=== PATIENT | female | born 2000 | race Caucasian/White ===

== ENCOUNTER 2025-03-07 16:33 | Emergency (ER) | payer OTHER, SELFPAY ==
[2025-03-07 16:39] VITALS: BP 122/76; PULSE 75; RESP 18; TEMP 37; O2SAT 98; BMI 32.0
--- NOTE | 2025-03-07 17:00 | ED.GENADULT ---
HPI - General Adult General Chief complaint: Ear Problems Stated complaint: right ear pain Time Seen by Provider: 03/07/25 16:54 Source: patient Mode of arrival: ambulatory Limitations: no limitations History of Present Illness ED Provider: José Mullins HPI narrative: 25-year-old female with history of recurrent ear infections and tubes in the past presents to the ED for bleeding from the right ear this morning when she woke up. And then having ear pain. Patient denies any recent head trauma, fever, chills, Q-tip use, riding roller [employer] or recent airplane. Related Data Previous Rx's ?Medication ?Instructions ?Recorded amoxicillin 875 mg-potassium 1 tab PO Q12H 10 days #20 tabs 03/07/25 clavulanate 125 mg tablet naproxen 500 mg tablet 500 mg PO BID PRN pain #14 tabs 03/07/25 Allergies Allergy/AdvReac Type Severity Reaction Status Date / Time No Known Allergies Allergy Verified 03/07/25 16:42 Review of Systems Review of Systems: Right ear pain bleeding Yes all other systems are reviewed and are negative [facility] Social History Social History Advance Directives: No Advance Directives Information Provided: No Physical Exam ED Vital Signs: Vital Signs - 24 hr 03/07/25 16:39 03/07/25 17:23 Temperature 98.6 F 98.6 F Pulse Rate 75 75 Respiratory Rate 18 18 Blood Pressure 122/76 122/76 Pulse Oximetry 98 98 Oxygen Delivery Method Room Air Room Air BMI result Body Mass Index 32.0 Const General: cooperative, healthy appearing, comfortable, no acute distress, well developed, alert, awake and Physically active Orientation/consciousness: patient oriented x3 HENMT Head: Yes normal to inspection, Yes No palpable skull fracture present, Yes normocephalic and Yes atraumatic Ears: hearing grossly normal bilaterally, external ears normal, TM normal on the left, EAC's normal, mastoids normal, no periauricular adenopathy and TM abnormal (Right) bulging and erythematous Eyes General: appearance normal, both eyes and all related structures Neck Neck: Yes normal visual inspection, Yes full ROM, Yes no lymphadenopathy, Yes no meningeal signs, Yes trachea midline, Yes supple, No anterior neck swelling and No tender Chest Chest palpation & inspection: normal inspection of the chest and normal palpation of entire chest wall Resp Effort & Inspection: normal respiratory effort and able to speak in complete sentences Auscultation: clear to auscultation bilaterally Cardio Jugular venous distension: no JVD Heart sounds: S1 normal heart sound present and S2 normal heart sound present GI Inspection: Yes normal to inspection Palpation (GI): Soft to palpation, not firm, nontender, no guarding and not rigid General: Yes no CVA tenderness Back/Spine/Pelvis Back: no CVA tenderness and No back tenderness Skin General skin exam: no rashes or lesions noted, elasticity normal and turgor normal Neuro General: patient oriented x3, gait normal, tone normal, moves all extremities, Normal light touch and pain sensation, no meningeal signs, no focal motor deficits, CN's II-XI intact bilaterally and normal sensation to monofilament Extrem General: Yes normal to inspection, Yes full ROM and Yes capillary refill normal Psych Appearance: grossly normal, well kempt and not disheveled Medical Decision Making Medical Decision Making MDM Narrative: 25-year-old female presents to ED for right ear pain and blood in the pillow. Patient denies any recent trauma. Patient states history of recurrent ear infections as a child had tubes placed in tube removed. Patient denies any recent swimming or recent airplane ride. Negative signs for raccoon signs. Negative for signs of mastoiditis. Patient will be discharged with antibiotics and explained worrisome signs. Patient informed to follow-up with ENT specialist. Positive for right tympanic membrane erythema. Patient explained worrisome signs and informed to return to the ED immediately. Not suspecting osteomyelitis, brain bleed, skull fracture, cervical spine fracture or any other life-threatening etiology. Differential Diagnosis Differential Diagnoses: The differential diagnosis associated with the presentation includes (Otitis media otitis externa, barotrauma.) Admission/Observation Consideration of admission/observation: Escalation of care including admission/observation considered Independent Historian Clinical information obtained from an independent historian. History obtained from or confirmed by: Other (patient) Prescription Management I considered prescription management with: Pain Medication and Antibiotic Discharge Plan Discharge Clinical Impression: Otitis media Patient Disposition: Home, Self-Care Instructions: Ear Infection (ED) Additional Instructions: Ear exam shows an infection. Negative for any bleeding. Infection can cause to bleeding in the ear. Return to the ED immediately for worsening ear pain, profuse bleeding, headache, dizziness, swelling, redness, or any other concerning symptoms. Prescriptions: New amoxicillin-pot clavulanate 875-125 mg tablet 1 tab PO Q12H 10 Days Qty: 20 0RF naproxen 500 mg tablet 500 mg PO BID PRN (Reason: pain) Qty: 14 0RF Referrals: [facility] [Outside, Ear, Nose, Throat] - 2 days Referral Note: Bleeding from the ear. Ear infection Clinical Impression: Otitis media Stand Alone Forms: Work/School Release Interventions: ED Discharge Assessment Last Done: 03/07/25 17:23 Discharge Date/Time: 03/07/25 17:23 Print Language: Uzbek
--- OUTSIDE RECORDS SUMMARY | 2025-03-07 17:09 | XMS_ITS | Data Portability ---
Author Organization [place] - [facility], [facility] Address [id number] [place] [address] Care Team Providers Care Business Services Sales Representative Name Role Phone YADIRANDALL JIMENEZ Primary Care Provider [phone] Assessment No assessment recorded. Plan of Treatment Reminders Order Date Submit Date Provider Last Modified By Organization Details Last Modified Time Details Appointments ANNUAL AESTHETICIAN 15 2025 02:00P M Boris rubin MD Not available Not available Not available Lab antibody screen, serum or plasma 2022 023 [facility], [address] [place] [address], [id number] 05/31/2023 09:35:51 glucose tolerance test, gestation al, 1-hour 2022 023 [facility], [address] [place] [address], [id number] 05/31/2023 09:35:51 CBC w/ auto diff 2022 023 [facility], [address] [place] [address], [address] 05/31/2023 09:35:52 RPR (rapid plasma reagin), titer, serum 2022 023 [facility], [address] [place] [address], [id number] 05/31/2023 09:35:51 maternal screen, integrate d, first and second trimester , serum 2022 023 [facility], [address] [place] [address], [facility] 03/13/2023 22:29:54 spinal muscular atrophy (sma) 1 + 2 carrier screen 2022 023 [facility], [address] [place], [address] 01/21/2023 21:15:09 CFTR gene sequencin g, blood or tissue 2022 023 [facility], [address], [place], 01/21/2023 21:15:07 hemoglobi n (Hb) electroph oresis, blood 2022 023 [facility], [address] [place], [address] 01/21/2023 21:15:06 Referral None recorded. Procedures None recorded. Surgeries None recorded. Imaging None recorded. Medication Orders None recorded. Patient TargetsNo targets recorded. Patient Instructions Encounter Date Encounter Id Patient Instructions Last Modified By Organization Details Last Modified Time 09/06/2024 [id number] tips to help you stay healthy [email or web address] Not available 09/06/2024 14:26:33 Reason for Referral None Reported. Results Created Date Observation Date Name Description Value Unit Range Abnormal Flag Note LastModifiedBy Organization Detail LastModifiedTime 12/22/19 23 12/22/2022 HIV 1/2 ANTIG EN/AN TIBOD Y,FOU RTH GENER ATION W/RFL HIV Ag/Ab, 4TH gen NON-RE ACTIVE non-re active normal HIV-1 antig en and HIV-1 /HIV- 2 antib odies were not detec dot. There is no labor atory evide nce of HIV infec tion. PLEAS E NOTE: This infor matio n has been discl osed to you from recor ds whose confi denti ality may be prote cted by state law. If your state requi res such prote ction , then the state law prohi bits you from govind french any furth er discl osure of the infor matio n witho ut the speci fic writt en conse nt of the perso n to whom it perta ins, or as other pham permi tted by law. A gener al autho rizat ion for the relea se of medic al or other infor emery ward is NOT suffi cient for this purpo se. For addit ional infor emery n pleas e refer to http: //[facility] eros lawson gnost ics.c om/fa q/FAQ 106 (This link is being provi ded for infor emery nal/ educa augusta l purpo ses only. ) The perfo rmanc e of this assay has not been clini qaung valid ated in patie nts less than 2 years old. Not Available [facility] [place] [facility] [address], [place], [address], 12/22/2022 20:32:33 12/22/19 23 12/22/2022 URINA LYSIS , COMPL ETE color YELLOW yellow normal Not Available [facility] [address], [place], [address], 12/22/2022 20:32:34 12/22/19 23 12/22/2022 URINA LYSIS , COMPL ETE appearance CLEAR clear normal Not Available [facility] [place] [facility] [address], [place], [address], 12/22/2022 20:32:34 12/22/19 23 12/22/2022 URINA LYSIS , COMPL ETE specific gravity 1.016 1.001- 1.035 normal Not Available [facility] [address], [place], [address], 12/22/2022 20:32:34 12/22/19 23 12/22/2022 URINA LYSIS , COMPL ETE pH 7.0 5.0-8. 0 normal Not Available [facility] [address], [place], [address], 12/22/2022 20:32:34 12/22/19 23 12/22/2022 URINA LYSIS , COMPL ETE glucose NEGATI VE negati ve normal Not Available [facility] [place] [facility] [address], [place], [address], 12/22/2022 20:32:34 12/22/19 23 12/22/2022 URINA LYSIS , COMPL ETE bilirubin NEGATI VE negati ve normal Not Available [facility] [place] [facility] [address], [place], [address], 12/22/2022 20:32:34 12/22/19 23 12/22/2022 URINA LYSIS , COMPL ETE ketones NEGATI VE negati ve normal Not Available [facility] [place] [facility] [address], [place], [address], 12/22/2022 20:32:34 12/22/19 23 12/22/2022 URINA LYSIS , COMPL ETE occult blood NEGATI VE negati ve normal Not Available [facility] [place] [facility] [address], [place], [address], 12/22/2022 20:32:34 12/22/19 23 12/22/2022 URINA LYSIS , COMPL ETE protein NEGATI VE negati ve normal Not Available [facility] [place] [facility] [address], [place], [address], 12/22/2022 20:32:34 12/22/19 23 12/22/2022 URINA LYSIS , COMPL ETE nitrite NEGATI VE negati ve normal Not Available [facility] [place] [facility] [address], [place], [address], 12/22/2022 20:32:34 12/22/19 23 12/22/2022 URINA LYSIS , COMPL ETE leukocyte esterase NEGATI VE negati ve normal Not Available [facility] [place] [facility] [address], [place], [address], 12/22/2022 20:32:34 12/22/19 23 12/22/2022 URINA LYSIS , COMPL ETE WBC NONE SEEN /hpf < or = 5 normal Not Available [facility] [place] [facility] [address], [place], [address], 12/22/2022 20:32:34 12/22/19 23 12/22/2022 URINA LYSIS , COMPL ETE RBC NONE SEEN /hpf < or = 2 normal Not Available [facility] [place] [facility] [address], [place], [address], 12/22/2022 20:32:34 12/22/19 23 12/22/2022 URINA LYSIS , COMPL ETE squamous epithelial cells NONE SEEN /hpf < or = 5 normal Not Available [facility] [place] [facility] [address], [place], [address], 12/22/2022 20:32:34 12/22/19 23 12/22/2022 URINA LYSIS , COMPL ETE bacteria NONE SEEN /hpf none seen normal Not Available [facility] [place] [facility] [address], [place], [address], 12/22/2022 20:32:34 12/22/19 23 12/22/2022 URINA LYSIS , COMPL ETE hyaline cast NONE SEEN /lpf none seen normal Not Available [facility] [place] [facility] [address], [place], [address], 12/22/2022 20:32:34 12/22/19 23 12/22/2022 URINA LYSIS , COMPL ETE note This urine was santy zed for the prese nce of WBC, RBC, bacte le, casts , and other forme d eleme nts. Only those eleme nts seen were repor dot. Not Available [facility] [place] [facility] [address], [place], [address], 12/22/2022 20:32:34 12/22/19 23 12/22/2022 CBC (INCL UDES DIFF/ PLT) white blood cell count 8.1 thous and/u L 3.8-10 .8 normal Not Available [facility] [place] [facility] [address], [place], [address], 12/22/2022 20:32:35 12/22/19 23 12/22/2022 CBC (INCL UDES DIFF/ PLT) red blood cell count 4.02 kalin on/uL 3.80-5 .10 normal Not Available [facility] [place] [facility] [address], [place], [address], 12/22/2022 20:32:35 12/22/19 23 12/22/2022 CBC (INCL UDES DIFF/ PLT) hemoglobin 12.5 g/dL 11.7-1 5.5 normal Not Available [facility] [place] [facility] [address], [place], [address], 12/22/2022 20:32:35 12/22/19 23 12/22/2022 CBC (INCL UDES DIFF/ PLT) hematocrit 36.3 % 35.0-4 5.0 normal Not Available [facility] [place] [facility] [address], [place], [address], 12/22/2022 20:32:35 12/22/19 23 12/22/2022 CBC (INCL UDES DIFF/ PLT) MCV 90.3 fL 80.0-1 00.0 normal Not Available [facility] [address], [place], [address], 12/22/2022 20:32:35 12/22/19 23 12/22/2022 CBC (INCL UDES DIFF/ PLT) MCH 31.1 pg 27.0-3 3.0 normal Not Available [facility] [address], [place], [address], 12/22/2022 20:32:35 12/22/19 23 12/22/2022 CBC (INCL UDES DIFF/ PLT) MCHC 34.4 g/dL 32.0-3 6.0 normal Not Available [facility] [place] [facility] [address], [place], [address], 12/22/2022 20:32:35 12/22/19 23 12/22/2022 CBC (INCL UDES DIFF/ PLT) RDW 14.2 % 11.0-1 5.0 normal Not Available [facility] [place] [facility] [address], [place], [address], 12/22/2022 20:32:35 12/22/19 23 12/22/2022 CBC (INCL UDES DIFF/ PLT) platelet count 268 thous and/u L 140-40 0 normal Not Available [facility] [place] [facility] [address], [place], [address], 12/22/2022 20:32:35 12/22/19 23 12/22/2022 CBC (INCL UDES DIFF/ PLT) MPV 11.9 fL 7.5-12 .5 normal Not Available [facility] [place] [facility] [address], [place], [address], 12/22/2022 20:32:35 12/22/19 23 12/22/2022 CBC (INCL UDES DIFF/ PLT) absolute neutrophils 4309 cells /uL 1500-7 800 normal Not Available [facility] [place] [facility] [address], [place], [address], 12/22/2022 20:32:35 12/22/19 23 12/22/2022 CBC (INCL UDES DIFF/ PLT) absolute lymphocytes 2940 cells /uL 850-39 00 normal Not Available [facility] [address], [place], [address], 12/22/2022 20:32:35 12/22/19 23 12/22/2022 CBC (INCL UDES DIFF/ PLT) absolute monocytes 705 cells /uL 200-95 0 normal Not Available [facility] [place] [facility] [address], [place], [address], 12/22/2022 20:32:35 12/22/19 23 12/22/2022 CBC (INCL UDES DIFF/ PLT) absolute eosinophils 97 cells /uL 15-500 normal Not Available [facility] [place] [facility] [address], [place], [address], 12/22/2022 20:32:35 12/22/19 23 12/22/2022 CBC (INCL UDES DIFF/ PLT) absolute basophils 49 cells /uL 0-200 normal Not Available [facility] [place] [facility] [address], [place], [address], 12/22/2022 20:32:35 12/22/19 23 12/22/2022 CBC (INCL UDES DIFF/ PLT) neutrophils 53.2 % normal Not Available [facility] [address], [place], [address], 12/22/2022 20:32:35 12/22/19 23 12/22/2022 CBC (INCL UDES DIFF/ PLT) lymphocytes 36.3 % normal Not Available [facility] [place] [facility] [address], [place], [address], 12/22/2022 20:32:35 12/22/19 23 12/22/2022 CBC (INCL UDES DIFF/ PLT) monocytes 8.7 % normal Not Available [facility] [address], [place], [address], 12/22/2022 20:32:35 12/22/19 23 12/22/2022 CBC (INCL UDES DIFF/ PLT) eosinophils 1.2 % normal Not Available [facility] [place] [facility] [address] [place], [place], [address], 12/22/2022 20:32:35 12/22/19 23 12/22/2022 CBC (INCL UDES DIFF/ PLT) basophils 0.6 % normal Not Available [facility] [place] [facility] [address] [place], [place], [address], 12/22/2022 20:32:35 12/22/19 23 12/22/2022 HEPAT ITIS B SURFA CE ANTIG EN W/REF L CONFI RM hepatitis B surface antigen NON-RE ACTIVE non-re active normal For addit ional infor karen vega e refer to http: //[facility] eros reese stdia gnost ics.c om/fa q/FAQ 202 (This link is being provi ded for infor matio nal/ educa augusta l purpo ses only. ) Not Available [facility] [place] [facility] [address], [place], [address], 12/22/2022 20:32:35 12/22/19 23 12/22/2022 HEPAT ITIS C AB W/REF L TO HCV RNA, QN, PCR hepatitis C antibody NON-RE ACTIVE non-re active normal HCV antib keerthi was non-r eacti ve. There is no labor atory evide nce of HCV infec tion. In most cases , no furth er actio n is requi red. Howev er, if recen t HCV expos ure is suspe cted, a test for HCV RNA (test code 76385 ) is sugge sted. For addit ional infor matio n plekeysha e refer to http: //[facility] eros reese stdia gnost ics.c om/fa q/FAQ 22v1 (This link is being provi ded for infor matio nal/ educa augusta l purpo ses only. ) Not Available [facility] [place] [facility] [address] [place], [place], [address], 12/22/2022 20:32:36 12/22/1912/22/2022 RUBEL LA AB (IGG) , IMMUN E STATU S rubella Ab (IgG), immune status 1.87 index normal Index Inter preta tion ----- ----- ----- ---- <0.90 Not consi stent with immun ity 0.90- 0.99 Equiv ocal > or = 1.00 Consi stent with immun ity The prese nce of rubel la IgG antib keerthi sugge sts immun izati on or past or curre nt infec tion with rubel la virus . Not Available [facility] [place] [facility] [address], [place], [address], 12/22/2022 20:32:37 12/22/1912/22/2022 VARIC JENNIFER ZOSTNoah R VIRUS ANTIB KEERTHI (IGG) varicella zoster virus antibody (IgG) <135.0 0 index low Index Inter preta tion ----- ---- ----- ----- ----- ----- -- <135. 00 Negat tashi - Antib keerthi not detec dot 135.0 0 - 164.9 9 Equiv ocal > or = 165.0 0 Posit tashi - Antib keerthi detec dot A posit tashi resul t indic ates that the patie nt has antib keerthi to VZV but does not diffe renti ate betwe en an activ e or past infec tion. The clini evelin diagn osis must be inter prete d in conju nctio n with the clini evelin signs and sympt oms of the patie nt. This assay relia parker measu res immun ity due to previ ous infec tion but may not be sensi tive enoug h to detec t antib odies induc ed by vacci natio n. Thus, a negat tashi resul t in a vacci nated indiv idual does not neces saril y indic ate susce ptibi lity to VZV infec tion. A more sensi tive test for vacci natio n-ind uced immun ity is Varic jennifer Zoste r Virus Antib keerthi Immun ity Scree n, ACIF. Not Available [facility] [place] [facility] [address], [address], 12/22/2022 20:32:37 12/22/19 23 12/22/2022 RPR (DX) W/REF L TITER AND CONFI RMATO RY TESTI NG RPR (DX) w/refl titer and confirmatory testing NON-RE ACTIVE non-re active normal Not Available [facility] [place] [facility] [address], [address], 12/22/2022 20:32:38 12/22/19 23 12/22/2022 ANTIB KEERTHI SCREE N, RBC W/REF L ID, TITER AND AG antibody screen, RBC w/refl id, titer and Ag NO ANTIBO DIES DETECT ED normal Refer ence range No antib odies detec dot This assay is a scree mariah test for the detec tion of red blood cell antib odies . The test is not to be used for pretr ansfu fer scree mariah or for the medic al manag ement of an alloi mmuni zed pregn simi. Not Available [facility] [address], [place], [address], 12/22/2022 20:32:39 12/22/19 23 12/22/2022 ABO GROUP AND RH TYPE ABO group A Not Available [facility] [place] [facility] [address], [address], 12/22/2022 20:32:39 12/22/19 23 12/22/2022 ABO GROUP AND RH TYPE Rh type RH(D) NEGATI VE For addit ional karen devries refer to http: //michael Reese [facility]Dia gnost ics.c om/fa q/FAQ 111 (This link is being provi ded for rocio calvo/ educa augusta l purpo ses only. ) Not Available [facility] [place] [facility] [address], [place], [address], 12/22/2022 20:32:39 12/22/19 23 12/22/2022 CULTU RE, URINE , ROUTI NE culture, urine, routine SEE NOTE CULTU RE, URINE , ROUTI NE Micro Numbe r: [id number] Test Statu s: Final Speci men Sourc e: Urine , clean catch Speci men Quali ty: Adequ ate Resul t: Mixed genit al donna isola dot. These super ficia l bacte le are not indic ative of a urina ry tract infec tion. No furth er organ ism ident ifica tion is warra nted on this speci men. If clini quang indic ated, recol lect clean -catc h, mid-s tream urine and trans chica immed iatel y to Urine Cultu re Trans port Tube. Not Available [facility] [place] [facility] [address], [place], [address], 12/22/2022 20:32:41 12/23/19 23 12/27/2022 THINP REP TIS PAP W/REF L HPV MRNA E6/E7 clinical information: normal None given Not Available [facility] [place] [facility] [address], [place], [address], 12/27/2022 09:00:23 12/23/19 23 12/27/2022 THINP REP TIS PAP W/REF L HPV MRNA E6/E7 LMP: normal 10/04 Not Available [facility] [address], [place], [address], 12/27/2022 09:00:23 12/23/19 23 12/27/2022 THINP REP TIS PAP W/REF L HPV MRNA E6/E7 prev. Pap: normal 05/06 Not Available [facility] [place] [facility] [address], [place], [address], 12/27/2022 09:00:23 12/23/19 23 12/27/2022 THINP REP TIS PAP W/REF L HPV MRNA E6/E7 prev. BX: normal NONE GIVEN Not Available [facility] [place] [facility] [address], [place], [address], 12/27/2022 09:00:23 12/23/1912/27/2022 THINP REP TIS PAP W/REF L HPV MRNA E6/E7 source: normal Cervi x, Endoc ervix Not Available [facility] [place] [facility] [address], [place], [address], 12/27/2022 09:00:23 12/23/1912/27/2022 THINP REP TIS PAP W/REF L HPV MRNA E6/E7 statement of adequacy: normal Satis facto ry for evalu ation . Endoc ervic al/tr ansfo rmati on zone compo nent prese nt. Not Available [facility] [place] [facility] [address], [place], [address], 12/27/2022 09:00:23 12/23/1912/27/2022 THINP REP TIS PAP W/REF L HPV MRNA E6/E7 interpretati on/result: normal Cytol ogy Resul ts: Negat tashi for intra epith elial lesio n or malig mali . Not Available [facility] [place] [facility] [address], [place], [address], 12/27/2022 09:00:23 12/23/1912/27/2022 THINP REP TIS PAP W/REF L HPV MRNA E6/E7 infection: normal Funga l organ isms morph ologi quang consi stent with Kirsten da spp. Not Available [facility] [place] [facility] [address], [place], [address], 12/27/2022 09:00:23 07/12/27/2022 THINP REP TIS PAP W/REF L HPV MRNA E6/E7 comment: normal This Pap test has been evalu ated with compu block techn ology . Not Available [facility] [place] [facility] [address], [address], 12/27/2022 09:00:23 12/23/1912/27/2022 THINP REP TIS PAP W/REF L HPV MRNA E6/E7 cytotechnolo gist: normal DCR, CT( CP) CT scree mariah locat ion: [facility] [address], [place] [address] Not Available [facility] [place] [facility] [address], [place], [address], 12/27/2022 09:00:23 12/23/1912/27/2022 THINP REP TIS PAP W/REF L HPV MRNA E6/E7 comment EXPLA NATOR Y NOTE: The Pap is a scree mariah test for cervi evelin cance r. It is not a diagn ostic test and is subje ct to false negat tashi and false posit tashi resul ts. It is most relia ble when a satis facto ry sampl e, regul nikki obtai michelle, is submi tted with relev ant clini evelin findi ngs and histo ry, and when the Pap resul t is evalu ated along with histo maximino and curre nt clini evelin infor matio n. Your reque st to have a dupli deanna copy faxed has been preet taylorg ed. Queue d to: [phone] Not Available [facility] [place] [facility] [address], [place], [address], 12/27/2022 09:00:23 12/23/1912/22/2022 CT + NG + TV, DNA, urine /swab gonorrhea (GC) negati ve negati ve normal Not Available In-Office Order Internal Use Only DO Not Attach Compendium DO Not Attach Compendium, Do Not Delete/merge, [id number] 12/21/2022 16:14:26 12/23/19 23 12/22/2022 CT + NG + TV, DNA, urine /swab chlamydia (CT) negati ve negati ve normal Not Available In-Office Order Internal Use Only DO Not Attach Compendium DO Not Attach Compendium, Do Not Delete/merge, [id number] 12/21/2022 16:14:26 12/23/19 23 12/22/2022 CT + NG + TV, DNA, urine /swab trichomonias is (TV) negati ve negati ve normal Not Available In-Office Order Internal Use Only DO Not Attach Compendium DO Not Attach Compendium, Do Not Delete/merge, [id number] 12/21/2022 16:14:26 01/13/20 23 01/17/2023 SEQUE NTIAL INTEG RATED SCREE N, PART 1 interpretati on: SEE NOTE This patie nt's risk does not excee d the first trime ster cut-o ff for Down syndr ome or triso my 18. The integ rated scree n calcu latio n is await ing the secon d trime ster sampl e. NT WAS USED IN THE RISK CALCU LATIO NS. Thank you for submi tting this patie nt's Part 1 speci men. These first trime ster value s will be incor porat ed with the secon d trime ster value s as part of the integ rated testi ng proce ss. Pleas e submi t the Part 2 speci men betwe en 01/27 -03/06 3 (15.0 and 22.9 weeks gesta tion) with 01/27 -09 3 (15.0 - 16.9 weeks gesta tion) being optim al. When submi tting Part 2, pleas e inclu de the follo wing Speci men # from Part 1: [id number] Not Available [facility] [address], [place], [address], 01/17/2023 15:59:15 01/13/20 23 01/17/2023 SEQUE NTIAL INTEG RATED SCREE N, PART 1 age risk down syndrome 1:820 Not Available [facility] [address], [address], 01/17/2023 15:59:15 01/13/20 23 01/17/2023 SEQUE NTIAL INTEG RATED SCREE N, PART 1 kenny down syndrome risk IN PROCES S <1:50 Not Available [facility] [place] [facility] [address], [address], 01/17/2023 15:59:15 01/13/20 23 01/17/2023 SEQUE NTIAL INTEG RATED SCREE N, PART 1 kenny trisomy 18 risk IN PROCES S <1:60 Not Available [facility] [address], [address], 01/17/2023 15:59:15 01/13/20 23 01/17/2023 SEQUE NTIAL INTEG RATED SCREE N, PART 1 calc'd gestational age 12.9 [place] rump lengt h (CRL) was used to calcu late gesta augusta l age. GHANSHYAM, if provi ded, was not used for gesta augusta l age datin g. Not Available [facility] [address] [place] [address], [address], 01/17/2023 15:59:15 01/13/20 23 01/17/2023 SEQUE NTIAL INTEG RATED SCREE N, PART 1 iggy-A 598.6 NG/mL This test was perfo rmed using a kit that has not been clear ed or appro parag by the FDA. The santy tical perfo rmanc e nicolette cteri stics of this test have been deter mined by [facility] [place] trancarleen . This test shoul d not be used for diagn osis witho ut confi rmati on by other medic ally estab lishe d means . Not Available [facility] [address], [place], [address], 01/17/2023 15:59:15 01/13/20 23 01/17/2023 SEQUE NTIAL INTEG RATED SCREE N, PART 1 iggy-A MOM 0.57 Not Available [facility] [address], [place], [address], 01/17/2023 15:59:15 01/13/20 23 01/17/2023 SEQUE NTIAL INTEG RATED SCREE N, PART 1 HCG, serum 113.1 IU/mL Not Available [facility] [address], [place], [address], 01/17/2023 15:59:15 01/13/20 23 01/17/2023 SEQUE NTIAL INTEG RATED SCREE N, PART 1 HCG MOM 1.38 Not Available [facility] [address], [place], [address], 01/17/2023 15:59:15 01/13/20 23 01/17/2023 SEQUE NTIAL INTEG RATED SCREE N, PART 1 nt MOM 0.89 This is a scree mariah test, not a diagn ostic test. This risk asses sment is based on demog raphi c data provi ded by the order ing physi mira. Pleas e notif y the labor atory promp tly if any data are incor rect. It has been obser parag that patie nts who smoke cigar ettes durin g pregn simi may have a sligh tly incre ased risk of havin g a false posit tashi KENNY scree n for Down Syndr ome or triso my 18. It has been obser parag that patie nts whose pregn simi is the resul t of IVF may have a sligh tly incre ased risk of havin g a false posit tashi KENNY scree n for Down syndr ome or triso my 18. If you have quest ions daisha rning this repor t: For clini evelin consu ltati on, call [phone]; For techn ical quest ions, call [phone]; For recal culat ions, fax to [phone]. Scree n Posit tashi for Down Syndr ome: KENNY Down Syndr ome Risk that equal s or excee ds 1 in 50 Scree n Posit tashi for Triso my 18: KENNY Triso my 18 Risk that equal s or excee ds 1 in 60 For addit ional infor karen vega e refer to http: //[facility].[email or web address] langia gnost ics.c om/fa q/FAQ 89 (This link is being provi ded for infor emery nal/e ducat ional purpo ses only. ) Not Available [facility] [address], [address], 01/17/2023 15:59:15 01/13/20 23 01/17/2023 SEQUE NTIAL INTEG RATED SCREE N, PART 1 referring physician name STEVEN COHEN Not Available [facility] [address], [address], 01/17/2023 15:59:15 01/13/20 23 01/17/2023 SEQUE NTIAL INTEG RATED SCREE N, PART 1 referring physician phone [phone] Not Available [facility] [address], [address], 01/17/2023 15:59:15 01/13/20 23 01/17/2023 SEQUE NTIAL INTEG RATED SCREE N, PART 1 referring physician npi NOT GIVEN Not Available [facility] [address], [address], 01/17/2023 15:59:15 01/13/20 23 01/17/2023 SEQUE NTIAL INTEG RATED SCREE N, PART 1 date of 2000 Not Available [facility] [address], [place], [address], 01/17/2023 15:59:15 01/13/20 23 01/17/2023 SEQUE NTIAL INTEG RATED SCREE N, PART 1 collection date 2022 Not Available [facility] [place] [facility] [address], [place], [address], 01/17/2023 15:59:15 01/13/20 23 01/17/2023 SEQUE NTIAL INTEG RATED SCREE N, PART 1 maternal weight 150 lbs Not Available [facility] [address], [place], [address], 01/17/2023 15:59:15 01/13/20 23 01/17/2023 SEQUE NTIAL INTEG RATED SCREE N, PART 1 est'd date of delivery 2023 Not Available [facility] [address], [place], [address], 01/17/2023 15:59:15 01/13/20 23 01/17/2023 SEQUE NTIAL INTEG RATED SCREE N, PART 1 ghanshyam determined by ULTRAS OUND Not Available [facility] [address], [place], [address], 01/17/2023 15:59:15 01/13/20 23 01/17/2023 SEQUE NTIAL INTEG RATED SCREE N, PART 1 mother's ethnic origin OTHER Not Available [facility] [address], [place], [address], 01/17/2023 15:59:15 01/13/20 23 01/17/2023 SEQUE NTIAL INTEG RATED SCREE N, PART 1 number of fetuses 1 Not Available [facility] [address], [place], [address], 01/17/2023 15:59:15 01/13/20 23 01/17/2023 SEQUE NTIAL INTEG RATED SCREE N, PART 1 insulin depend diabetic NO Not Available [facility] [address], [place], [address], 01/17/2023 15:59:15 01/13/20 23 01/17/2023 SEQUE NTIAL INTEG RATED SCREE N, PART 1 repeat specimen NO Not Available [facility] [address], [place], [address], 01/17/2023 15:59:15 01/13/20 23 01/17/2023 SEQUE NTIAL INTEG RATED SCREE N, PART 1 Hx of neural tube defects NO Not Available [facility] [address], [place], [address], 01/17/2023 15:59:15 01/13/20 23 01/17/2023 SEQUE NTIAL INTEG RATED SCREE N, PART 1 prev down synd NO Not Available [facility] [address], [place], [address], 01/17/2023 15:59:15 01/13/20 23 01/17/2023 SEQUE NTIAL INTEG RATED SCREE N, PART 1 donor egg NO Not Available [facility] [address], [place], [address], 01/17/2023 15:59:15 01/13/20 23 01/17/2023 SEQUE NTIAL INTEG RATED SCREE N, PART 1 donor age: egg retrieval NOT GIVEN Not Available [facility] [address], [place], [address], 01/17/2023 15:59:15 01/13/20 23 01/17/2023 SEQUE NTIAL INTEG RATED SCREE N, PART 1 cigarette smoker NO Not Available [facility] [address], [place], [address], 01/17/2023 15:59:15 01/13/20 23 01/17/2023 SEQUE NTIAL INTEG RATED SCREE N, PART 1 result of IVF NOT GIVEN Not Available [facility] [address], [place], [address], 01/17/2023 15:59:15 01/13/20 23 01/17/2023 SEQUE NTIAL INTEG RATED SCREE N, PART 1 ultrasound date 2022 Not Available [facility] [address], [place], [address], 01/17/2023 15:59:15 01/13/20 23 01/17/2023 SEQUE NTIAL INTEG RATED SCREE N, PART 1 ultrasonogra pher's name MEIR AZEVEDO Not Available [address], [place], [address], 01/17/2023 15:59:15 01/13/20 23 01/17/2023 SEQUE NTIAL INTEG RATED SCREE N, PART 1 ntqr ultrasonogra pher id# [id number] Not Available [address], [place], [address], 01/17/2023 15:59:15 01/13/20 23 01/17/2023 SEQUE NTIAL INTEG RATED SCREE N, PART 1 ntqr location id# NOT GIVEN Not Available [address], [address], 01/17/2023 15:59:15 08/09/01/17/2023 SEQUE NTIAL INTEG RATED SCREE N, PART 1 ntqr reading phys id# NOT GIVEN Not Available [facility] [address], [address], 01/17/2023 15:59:15 01/13/20 23 01/17/2023 SEQUE NTIAL INTEG RATED SCREE N, PART 1 fmf ultrasonogra pher id# NOT GIVEN Not Available [facility] [address], [address], 01/17/2023 15:59:15 01/13/20 23 01/17/2023 SEQUE NTIAL INTEG RATED SCREE N, PART 1 crown rump length 68.1 mm Not Available [address], [address], 01/17/2023 15:59:15 01/13/20 23 01/17/2023 SEQUE NTIAL INTEG RATED SCREE N, PART 1 nuchal translucency 1.42 mm Not Available [facility] [address], [address], 01/17/2023 15:59:15 01/13/20 23 01/17/2023 SEQUE NTIAL INTEG RATED SCREE N, PART 1 nasal bone NOT GIVEN Not Available [address], [address], 01/17/2023 15:59:15 01/13/20 23 01/17/2023 SEQUE NTIAL INTEG RATED SCREE N, PART 1 if twins NOT GIVEN Not Available [address], [address], 01/17/2023 15:59:15 01/13/20 23 01/17/2023 SEQUE NTIAL INTEG RATED SCREE N, PART 1 twin B crl NOT GIVEN mm Not Available [facility] [place] [facility] [address], [place], [address], 01/17/2023 15:59:15 01/13/20 23 01/17/2023 SEQUE NTIAL INTEG RATED SCREE N, PART 1 twin B nt NOT GIVEN mm Not Available [facility] [place] [facility] [address], [place], [address], 01/17/2023 15:59:15 01/13/20 23 01/17/2023 SEQUE NTIAL INTEG RATED SCREE N, PART 1 twin B nasal bone NOT GIVEN Not Available [facility] [place] [facility] [address], [place], [address], 01/17/2023 15:59:15 01/13/20 23 01/21/2023 HEMOG LOBIN OPATH Y EVALU ATION red blood cell count 4.21 kalin on/uL 3.80-5 .10 normal Not Available [facility] [place] [facility] [address], [place], [address], 01/21/2023 21:15:06 01/13/20 23 01/21/2023 HEMOG LOBIN OPATH Y EVALU ATION hemoglobin 13.0 g/dL 11.7-1 5.5 normal Not Available [facility] [place] [facility] [address], [place], [address], 01/21/2023 21:15:06 01/13/20 23 01/21/2023 HEMOG LOBIN OPATH Y EVALU ATION hematocrit 38.6 % 35.0-4 5.0 normal Not Available [facility] [place] [facility] [address], [place], [address], 01/21/2023 21:15:06 01/13/20 23 01/21/2023 HEMOG LOBIN OPATH Y EVALU ATION MCV 91.7 fL 80.0-1 00.0 normal Not Available [facility] [place] [facility] [address], [place], [address], 01/21/2023 21:15:06 01/13/20 23 01/21/2023 HEMOG LOBIN OPATH Y EVALU ATION MCH 30.9 pg 27.0-3 3.0 normal Not Available [facility] [place] [facility] [address], [place], [address], 01/21/2023 21:15:06 01/13/2001/21/2023 HEMOG LOBIN OPATH Y EVALU ATION RDW 14.5 % 11.0-1 5.0 normal Not Available [facility] [place] [facility] [address], [place], [address], 01/21/2023 21:15:06 01/13/2001/21/2023 HEMOG LOBIN OPATH Y EVALU ATION hemoglobin A 97.2 % >96.0 normal Not Available [facility] [place] [facility] [address], [place], [address], 01/21/2023 21:15:06 01/13/2001/21/2023 HEMOG LOBIN OPATH Y EVALU ATION hemoglobin F 0.4 % <2.0 normal Not Available [facility] [place] [facility] [address], [place], [address], 01/21/2023 21:15:06 01/13/20 23 01/21/2023 HEMOG LOBIN OPATH Y EVALU ATION hemoglobin A2 (quant) 2.4 % 2.2-3. 2 normal Not Available [facility] [place] [facility] [address], [place], [address], 01/21/2023 21:15:06 01/13/20 23 01/21/2023 HEMOG LOBIN OPATH Y EVALU ATION interpretati on Riya l pheno type. Not Available [facility] [place] [facility] [address], [place], [address], 01/21/2023 21:15:06 01/13/20 23 01/21/2023 CYSTI C FIBRO SIS SCREE N ethnicity: O Not Available [facility] [place] [facility] [address], [place], [address], 01/21/2023 21:15:07 01/13/20 23 01/21/2023 CYSTI C FIBRO SIS SCREE N CF result NEGATI VE negati ve NEGAT TASHI; NONE OF THE MUTAT IONS LISTE D BELOW WERE DETEC DOT Not Available [facility] [place] [facility] [address], [place], [address], 01/21/2023 21:15:07 01/13/20 23 01/21/2023 CYSTI C FIBRO SIS SCREE N interpretati on SEE NOTE This resul t does not rule out the prese nce of a mutat ion or a diagn osis of cysti c fibro sis disea se (CF). The risk for mutat ions that cause CF other than the ones teste d depen ds great ly on famil y histo ry, clini evelin prese ntati on, and ethni city. Chanc e of Juliin g a CF Mutat ion Ethni c Group Detec tion Befor e After Negat tashi Rate Test Resul t Ashke nazi Jewis h 94% 1 in 24 1 in 400 Non-H ispan ic 88% 1 in 25 1 in 208 Cauca antelmo Hispa kat-A meric an 72% 1 in 46 1 in 164 Afric an-Am nils n 65% 1 in 65 1 in 186 -Amer ican 49% 1 in 94 1 in 184 Other insuf ficie nt data avail able Healt h care provi ders, pleas e conta ct your local [facility] coun[facility] elor or call [facility] Cli[facility] t Servi janet at [phone] for jose tance with inter preta tion of these resul ts. Not Available [facility] [place] [facility] [address] [place] [address] Kee Gann, [place], [address], 01/21/2023 21:15:07 01/13/20 23 01/21/2023 CYSTI C FIBRO SIS SCREE N mutations/po lymorphisms SEE NOTE MUTAT IONS SANTY ZED: G85E (c.25 4G>A) S549N (c.16 46G>A ) 394de lTT (c.26 2delT T) G551D (c.16 52G>A ) R117H (c.35 0G>A) R553X (c.16 57C>T ) 621+1 G>T (c.48 9+1G> T) R560T (c.16 79G>C ) 711+1 G>T (c.57 9+1G> T) 1898+ 1 G>A (c.17 66+1G >A) 1078d elT (c.94 8delT ) 2183A A>G (c.20 51del AAins G) R334W (c.10 00C>T ) 2184d Leslie (c.20 52del A) R347H (c.10 40G>A ) 2789+ 5 G>A (c.26 57+5G >A) R347P (c.10 40G>C ) 3120+ 1 G>A (c.29 88+1G >A) A455E (c.13 64C>A ) R1162 X (c.34 84C>T ) I507d el (c.15 19del ATC) 3659d elC (c.35 28del C) F508d el (c.15 21del CTT) 3849+ 10kb C>T (c.37 17+12 191C> T) V520F (c.15 58G>T ) 3876d Leslie (c.37 44del A) 1717- 1 G>A (c.15 85-1G >A) 3905i nsT (c.37 73ins T) G542X (c.16 24G>T ) W1282 X (c.38 46G>A ) S549R (c.16 45A>C or c.164 7T>G) N1303 K (c.39 09C>G ) This assay detec ts thirt y-two mutat ions, inclu ding the twent y-thr ee core mutat ions recom shanae d by the Ameri can Colle ge of Medic al Ana ics (ACMG ) and the Ameri can Congr ess of Obste trici ans and Gynec ologi sts (ACOG ) for popul ation -base d CF ewa er scree mariah. In addit ion to the ACMG/ ACOG panel , this assay detec ts nine addit ional mutat ions. While these mutat ions are rare in the [place] popul ation , the scien tific and medic al liter ature indic ates that these mutat ions are not benig n polym orphi sms. The statu s of the intro n 9 (form erly intro n 8) polyT tract is repor dot only when the R117H mutat ion is detec dot. Not Available [facility] [place] [facility] [address], [place], [address], 01/21/2023 21:15:07 01/13/20 23 01/21/2023 CYSTI C FIBRO SIS SCREE N method SEE NOTE The mutat ions are detec dot by multi plex- polym erase chain react ion (PCR) ampli ficat ion of speci fic CF gene regio ns, follo wed by nucle otide seque nce santy sis on a massi vely paral lel seque ncing platf orm. Altho ugh rare, false posit tashi or false negat tashi resul ts may occur . All resul ts shoul d be inter prete d in the herminia xt of clini evelin findi ngs, relev ant histo ry, and other labor atory data. Not Available [facility] [place] [facility] [address], [place], [address], 01/21/2023 21:15:07 01/13/20 23 01/21/2023 CYSTI C FIBRO SIS SCREE N reviewer SEE NOTE Labor atory testi ng super vised and resul ts monit ored by Teodora Valladares ch-Duran wks, Ph.D. , DABMG G, CGMB. For addit ional infor karen vega refer to http: //[facility] std[facility] gnost ics.c om/fa q/cfs creen (This link is being provi ded for infor emery nal/e ducat ional purpo ses only. ) This test was devel oped and its santy tical perfo rmanc e nicolette cteri stics have been deter mined by [facility] Bishop trancarleen . It has not been clear ed or appro parag by FDA. This assay has been valid ated pursu ant to the CLIA regul ation s and is used for clini evelin purpo ses. Not Available [facility] [place] [facility] [address], [address], 01/21/2023 21:15:07 01/13/20 23 01/21/2023 SPINA L MUSCU LAR ATROP HY (SMA) EWA ER SCREE N technical results NEGATI VE NEGAT TASHI: AT LEAST THREE COPIE S OF THE SMN1 GENE DETEC DOT Not Available [facility] [place] [facility] [address], [address], 01/21/2023 21:15:09 01/13/20 23 01/21/2023 SPINA L MUSCU LAR ATROP HY (SMA) EWA ER SCREE N smn1 >=4 COPIES Not Available [facility] [place] [facility] [address], [address], 01/21/2023 21:15:09 01/13/20 23 01/21/2023 SPINA L MUSCU LAR ATROP HY (SMA) EWA ER SCREE N interpretati on SEE NOTE INTER PRETA TION: This santy sis ident ified at least three (3) copie s of the SMN1 gene. The sonja ed ewa er risk for an indiv idual with at least three (3) copie s of the SMN1 gene is depen dent on [facility] and is provi ded in the table below (Jeyson cantrell et al., 2012. PMID: 19770 [id number]). LIMIT ATION S OF SANTY SIS: This resul t does not rule out ewa er statu s or a diagn osis of spina l muscu lar atrop hy (SMA) . This testi ng canno t diffe renti ate betwe en indiv idual s who have all copie s of the SMN1 gene on one chrom osome and none on the oppos ite chrom osome (sile nt ewa ers), nor does it rule out other patho genic /like ly patho genic varia nts in the SMN1 gene. The risk for patho genic /like ly patho genic varia nts that cause SMA other than the loss of at least exon 7 depen ds great ly on famil y histo ry, clini evelin prese ntati on and ethni city. Sonja ed ewa er risk for indiv idual s with no famil y histo ry of SMA Ewa er Popul ation Detec tion Ewa er Ethni city Rate Risk Sonja ed Risk Cauca antelmo 95% 1:47 1:5,6 00 Ashke nazi 91% 1:67 1:5,4 00 Jewis h 93% 1:59 1:5,6 00 Afric an 71% 1:72 1:4,2 00 Ameri can Hispa kat 90% 1:68 1:5,4 00 Labor atory testi ng super vised and resul ts monit ored by Teodora Valladares ch-Duran wks, Ph.D. , DAB G, [facility]. SUPPL EMENT AL INFOR MATIO N: Spina l muscu lar atrop hy (SMA) is a famil y of disor ders that is nicolette cteri zed by progr essiv e muscl e weakn ess due to loss of anter ior horn cells . A loss of at least exon 7 in the SMN1 gene, locat ed on chrom osome 5q, cause s 95% of SMA. The remai nder of cases may be cause d by intra genic patho genic /like ly patho genic varia nts that would not be detec dot by this assay . SMN2 genes produ ce a prote in ident ical to that of the SMN1 gene, but in a reduc ed (10-2 0%) amoun t. As a resul t, the numbe r of copie s of SMN2 has been shown to influ ence the sever ity of the disea se. This assay detec ts the copy numbe r of SMN1 and asses ses copy numbe r of SMN2 as descr ibed below . METHO DOLOG Y: The SMN1 copy numbe r is detec dot by quant itati ve PCR. The g.271 34T>G varia nt ([id number]), asses sed by quant itati ve PCR, is repor dot when the SMN1 copy is equal to two. SMN2 copy numbe r is asses sed by quant itati ve PCR when SMN1 copy numbe r is equal to zero or one, or when SMN1 is equal to two in the prese nce of the g.271 34T>G varia nt. Altho ugh rare, false posit tashi or false negat tashi resul ts may occur . All resul ts shoul d be inter prete d in herminia xt of clini evelin findi ngs, relev ant histo ry, and other labor atory data. Healt h care provi ders, pleas e conta ct your local [facility] couns elor or call [facility] t Servi janet at [phone] for jose tance with the inter preta tion of these resul ts. This test was devel oped and its santy tical perfo rmanc e nicolette cteri stics have been deter mined by [facility] Bishop trancarleen . It has not been clear ed or appro parag by FDA. This assay has been valid ated pursu ant to the CLIA regul ation s and is used for clini evelin purpo ses. Not Available [facility] [place] [facility] [address], [place], [address], 01/21/2023 21:15:09 03/08/20 23 03/13/2023 SEQUE NTIAL INTEG RATED SCREE N, PART 2 interpretati on: SEE NOTE SCREE N NEGAT TASHI FOR OPEN NTD, DOWN SYNDR OME AND TRISO MY 18. NT WAS USED IN THE RISK CALCU LATIO NS. Not Available [facility] [address], [address], 03/13/2023 22:29:54 03/08/2003/13/2023 SEQUE NTIAL INTEG RATED SCREE N, PART 2 risk for ontd <1:500 0 Not Available [facility] [address], [address], 03/13/2023 22:29:54 03/08/2003/13/2023 SEQUE NTIAL INTEG RATED SCREE N, PART 2 age risk down syndrome 1:1100 Not Available [facility] [address], [address], 03/13/2023 22:29:54 03/08/20 23 03/13/2023 SEQUE NTIAL INTEG RATED SCREE N, PART 2 kenny down syndrome risk <1:500 0 <1:270 Not Available [facility] [address], [address], 03/13/2023 22:29:54 03/08/20 23 03/13/2023 SEQUE NTIAL INTEG RATED SCREE N, PART 2 kenny trisomy 18 risk <1:500 0 <1:100 Not Available [facility] [address], [address], 03/13/2023 22:29:54 03/08/20 23 03/13/2023 SEQUE NTIAL INTEG RATED SCREE N, PART 2 calc'd gestational age 20.7 [place] rump lengt h (CRL) was used to calcu late gesta augusta l age. GHANSHYAM, if provi ded, was not used for gesta augusta l age datin g. Not Available [facility] [address], [place], [address], 03/13/2023 22:29:54 03/08/20 23 03/13/2023 SEQUE NTIAL INTEG RATED SCREE N, PART 2 AFP, serum 47.7 NG/mL Not Available [facility] [address], [address], 03/13/2023 22:29:54 03/08/20 23 03/13/2023 SEQUE NTIAL INTEG RATED SCREE N, PART 2 AFP MOM 0.87 Refer ence Range : <2.50 IDD <1.90 TWINS <4.00 TWINS IDD <3.50 TRIPL ETS <4.50 Not Available [facility] [address], [address], 03/13/2023 22:29:54 03/08/20 23 03/13/2023 SEQUE NTIAL INTEG RATED SCREE N, PART 2 HCG, serum 9.4 IU/mL Not Available [facility] [address], [address], 03/13/2023 22:29:54 03/08/20 23 03/13/2023 SEQUE NTIAL INTEG RATED SCREE N, PART 2 HCG MOM 0.49 Not Available [facility] [address], [address], 03/13/2023 22:29:54 03/08/20 23 03/13/2023 SEQUE NTIAL INTEG RATED SCREE N, PART 2 estriol, free 2.40 NG/mL Not Available [facility] [address], [address], 03/13/2023 22:29:54 10/08/23 2203/13/2023 SEQUE NTIAL INTEG RATED SCREE N, PART 2 estriol MOM 1.10 Not Available [facility] [address], [address], 03/13/2023 22:29:54 03/08/2003/13/2023 SEQUE NTIAL INTEG RATED SCREE N, PART 2 inhibin A, dimeric 87 pg/mL Not Available [facility] [address], [address], 03/13/2023 22:29:54 03/08/2003/13/2023 SEQUE NTIAL INTEG RATED SCREE N, PART 2 inhibin A MOM 0.42 Not Available [facility] [address], [address], 03/13/2023 22:29:54 03/08/2003/13/2023 SEQUE NTIAL INTEG RATED SCREE N, PART 2 iggy-A 598.6 NG/mL This test was perfo rmed using a kit that has not been clear ed or appro parag by the FDA. The santy tical perfo rmanc e nicolette cteri stics of this test have been deter mined by [facility]ad Bautistai ryan SorrentoToni main . This test shoul d not be used for diagn osis witho ut confi rmati on by other medic ally estab lishe d means . Not Available [facility] [address], [address], 03/13/2023 22:29:54 03/08/2003/13/2023 SEQUE NTIAL INTEG RATED SCREE N, PART 2 iggy-A MOM 0.57 Not Available [facility] [address], [address], 03/13/2023 22:29:54 03/08/2028 0303/13/2023 SEQUE NTIAL INTEG RATED SCREE N, PART 2 nt MOM 0.89 The Seque ntial Integ rated Scree n combi leonarda IGGY- A and hCG with or witho ut a nucha l trans lucen cy measu remen t in the first trime ster with AFP, uncon jugat ed estri ol, intac t hCG and Inhib in A in the secon d trime ster. This provi cayden a usefu l scree mariah test for detec tion of open neura l tube defec ts, Down syndr ome and Triso my 18. It shoul d be noted that riya l resul ts can never guara ntee the of a riya l baby and that 2 to 3 perce nt of [facility] rns have some type of physi evelin or menta l defec t, many of which are undet ectab le throu gh any known prena iveth diagn ostic techn ique. Not Available [facility] [address], [address], 03/13/2023 22:29:54 03/08/2003/13/2023 SEQUE NTIAL INTEG RATED SCREE N, PART [address] BORIS COHEN Not Available [facility] [address], [address], 03/13/2023 22:29:54 03/08/20 23 03/13/2023 SEQUE NTIAL INTEG RATED SCREE N, PART 2 referring physician phone Not Available [facility] [place] [facility] [address], [address], 03/13/2023 22:29:54 03/08/2003/13/2023 SEQUE NTIAL INTEG RATED SCREE N, PART 2 referring physician npi [phone] Not Available [facility] [address], [address], 03/13/2023 22:29:54 03/08/20 23 03/13/2023 SEQUE NTIAL INTEG RATED SCREE N, PART 2 specimen # from part 1 [id number] Not Available [facility] [address], [address], 03/13/2023 22:29:54 03/08/20 23 03/13/2023 SEQUE NTIAL INTEG RATED SCREE N, PART 2 date of 2000 Not Available [facility] [address], [id number], 03/13/2023 22:29:54 03/08/20 23 03/13/2023 SEQUE NTIAL INTEG RATED SCREE N, PART 2 collection date 2022 Not Available [facility] [address], [id number], 03/13/2023 22:29:54 03/08/20 23 03/13/2023 SEQUE NTIAL INTEG RATED SCREE N, PART 2 maternal weight 165 lbs Not Available [facility] [address], [id number], 03/13/2023 22:29:54 03/08/20 23 03/13/2023 SEQUE NTIAL INTEG RATED SCREE N, PART 2 est'd date of delivery 2023 Not Available [facility] [address], [id number], 03/13/2023 22:29:54 03/08/20 23 03/13/2023 SEQUE NTIAL INTEG RATED SCREE N, PART 2 nuchal translucency 1.42 mm Not Available [facility] [address], [address], 03/13/2023 22:29:54 03/08/20 23 03/13/2023 SEQUE NTIAL INTEG RATED SCREE N, PART 2 crown rump length 68.1 mm Not Available [facility] [address], [place], [address], 03/13/2023 22:29:54 03/08/20 23 03/13/2023 SEQUE NTIAL INTEG RATED SCREE N, PART 2 ultrasound date 2022 Not Available [facility] [address], [address], 03/13/2023 22:29:54 03/08/2003/13/2023 SEQUE NTIAL INTEG RATED SCREE N, PART 2 nasal bone NOT GIVEN Not Available [facility] [address], [address], 03/13/2023 22:29:54 03/08/20 23 03/13/2023 SEQUE NTIAL INTEG RATED SCREE N, PART 2 mother's ethnic origin OTHER Not Available [facility] [address], [address], 03/13/2023 22:29:54 03/08/20 23 03/13/2023 SEQUE NTIAL INTEG RATED SCREE N, PART 2 insulin depend diabetic N Not Available [facility] [address], [address], 03/13/2023 22:29:54 03/08/20 23 03/13/2023 SEQUE NTIAL INTEG RATED SCREE N, PART 2 repeat specimen N Not Available [facility] [address], [address], 03/13/2023 22:29:54 03/08/20 23 03/13/2023 SEQUE NTIAL INTEG RATED SCREE N, PART 2 number of fetuses 1 Not Available [facility] [address], [place], [address], 03/13/2023 22:29:54 03/08/20 23 03/13/2023 SEQUE NTIAL INTEG RATED SCREE N, PART 2 Hx of neural tube defects N Not Available [facility] [address], [place], [address], 03/13/2023 22:29:54 03/08/20 23 03/13/2023 SEQUE NTIAL INTEG RATED SCREE N, PART 2 cigarette smoker NO Not Available [facility] [address], [place], [address], 03/13/2023 22:29:54 03/08/20 23 03/13/2023 SEQUE NTIAL INTEG RATED SCREE N, PART 2 result of IVF NOT GIVEN Not Available [facility] [address], [place], [address], 03/13/2023 22:29:54 03/08/2003/13/2023 SEQUE NTIAL INTEG RATED SCREE N, PART 2 twin B nasal bone NOT GIVEN This is a scree mariah test, not a diagn ostic test. This risk asses sment is based on demog raphi c data provi ded by the order ing physi mira. Pleas e notif y the labor atory promp tly if any data are incor rect. It has been obser parag that patie nts who smoke cigar ettes durin g pregn simi may have a sligh tly incre ased risk of havin g a false posit tashi KENNY scree n for Down Syndr ome or triso my 18. It has been obser parag that patie nts whose pregn simi is the resul t of IVF may have a sligh tly incre ased risk of havin g a false posit tashi KENNY scree n for Down syndr ome or triso my 18. If you have quest ions daisha rning this repor t: For clini evelin consu ltati on, call [phone]; For techn ical quest ions, call [phone] ext [phone]; For recal culat ions, fax to [phone]. Inter preti ve Cutof fs Scree n Posit tashi for Open NTD: > or = 2.50 adjus dot MOM > or = 1.90 adjus dot MOM for insul in- depen dent Diabe tics > or = 4.00 adjus dot MOM for twins > or = 3.50 adjus dot MOM for twins insul in- depen dent diabe tics > or = 4.50 adjus dot MOM for tripl ets Scree n Posit tashi for Down Syndr ome: KENNY Down Syndr ome Risk that equal s or excee ds 1 in 270 Scree n Posit tashi for Triso my 18: KENNY Triso my 18 Risk that equal s or excee ds 1 in 100 For addit ional infor karen vega refer to http: //michael ward.que stdia gnost ics.c om/fa q/FAQ 94 (This link is provi ded for infor emery nal/e ducat ional purpo ses only. ) Not Available [facility] [place] [facility] [address] [place] [address] Azeem, [place], [address], 03/13/2023 22:29:54 09/08/19 25 09/07/2024 CT + NG + TV, DNA, urine /swab gonorrhea (GC) negati ve negati ve normal Not Available In-Office Order Internal Use Only DO Not Attach Compendium DO Not Attach Compendium, Do Not Delete/merge, [id number] 09/07/2024 10:07:13 09/08/19 25 09/07/2024 CT + NG + TV, DNA, urine /swab chlamydia (CT) negati ve negati ve normal Not Available In-Office Order Internal Use Only DO Not Attach Compendium DO Not Attach Compendium, Do Not Delete/merge, [id number] 09/07/2024 10:07:13 09/08/1909/07/2024 CT + NG + TV, DNA, urine /swab trichomonias is (TV) negati ve negati ve normal Not Available In-Office Order Internal Use Only DO Not Attach Compendium DO Not Attach Compendium, Do Not Delete/merge, [id number] 09/07/2024 10:07:13 01/13/20 23 01/12/2023 ultra sound image s RAD [email or web address] [employer] [id number] 01/12/2023 11:43:26 03/09/2003/09/2023 ultra sound image s RAD [email or web address] [facility] [employer] [id number] 03/10/2023 10:32:07 03/09/2003/09/2023 ultra sound image s RAD [email or web address] [facility] [employer] [id number] 03/10/2023 10:32:17 04/05/2004/05/2023 ultra sound image s RAD [email or web address] [employer] [id number] 04/05/2023 12:50:50 04/15/2004/14/2023 ultra sound image s RAD [email or web address] [employer] [id number] 04/20/2023 15:00:13 04/20/2004/19/2023 US, obste tric, mater nal evalu ation + anato my, singl e gesta tion No observ ation record ed. [email or web address] Not Available 13:40:22 05/05/20 23 05/04/2023 US, obste tric No observ ation record ed. [email or web address] Not Available 20:27:29 Result Notes None recorded. Problems Name Problem SNOMED Code Status Onset Date Resolution Date Notes Provider Name and Address Organization Details Recorded Time Asthma 226333380 Active Not Available [facility] 3 08:46:33 High risk pregnanc y 87279412 Completed Bernie Orta null, [place] - [facility] 3 13:51:31 Asthma 143320310 Completed Not Available [facility] Record 3 08:34:52 Completed or , Pt/Partn er Not Available [facility] Record 3 08:34:52 Ethnic backgrou nd 655597487 Completed Cajun/Fr ench Kay Backgrou nd, Pt/Partn er Not Available [facility] Record 3 08:34:52 Family history of diabetes mellitus 900589587 Completed pt mother Not Available [facility] Record 3 08:34:52 Electron ic cigarett e user 388549838 Completed Not Available [facility] Record 3 15:02:30 Varicell a non-immu ne 250400789 Completed - reviewed precauti ons and need for vacined postpart um Bernie Orta null, MD - [facility] 3 13:51:31 RhD negative 427879498 Active Mary Anne Celestineron null, [facility] 4 07:36:21 RhD negative 842982921 Completed Mary Anne Celestineron null, MD - [facility] 4 07:36:21 Remindin g about performi ng activity Completed Not Available [facility] Record 3 12:52:16 Appointm ent status 330042619 Completed Pt lives in [facility]. [facility] office for appts. Mary Anne Quezadan null, MD - [facility] 4 07:36:21 Remindin g about performi ng activity Completed Not Available [facility] Record 3 13:03:22 Varicell a non-immu ne 150091718 Active 2022 - had vaccine as a child - reviewed precuait ons, plan for postpart um booster Mary Anne Celestineron null, MD - [facility] 4 07:36:21 Migraine 60666231 Active 2022 Chronic Chanel Judge null, MD - [facility] 3 15:14:30 Bipolar disorder 31231994 Active 2022 - not currentl y on meds, pt unsure what meds she has taken in past - [facility] referral palced Mary Anne hernández, [facility] 4 07:36:21 Bipolar disorder 10075856 Completed 2022 - not currentl y on meds, pt unsure what meds she has taken in past [facility] referral [facility] Mary Anne hernández, [facility] 4 07:36:21 Eczema 88876766 Active 2022 Chanel Judge [facility] 3 15:26:25 Varicell a non-immu ne 754194092 Completed 2022 - had vaccine as a child - reviewed precuait ons, plan for postpart um booster [facility] 07:[facility]21 Problem Notes None recorded. Procedures Surgical History Date Name Laterality Status Provider Name and Address Organization Details Recorded Time 12/23/19 Date of Last Pap Smear completed Loida Antonio [facility] 05/02/2023 13:53:03 07/22/19 23 Dilation and Curettage completed Lidia Motley [facility] 08/18/2022 16:25:03 extraction of wisdom tooth completed Chanel Judge [facility] 12/13/2022 15:11:04 Remove tonsils and adenoids completed Chanel Judge [facility] 12/13/2022 15:11:19 Imaging Results None recorded. Procedure Notes None recorded. Medical Equipment None Reported. Allergies Allergen ID Allergen Name Allergen Category Reaction Reaction Severity Criticality Documentation Date Start Date Code Code System Note Provider Name and Address Organization Details Recorded Time 3406215 cat dander environme nt cough itching moderate severe Not available 07/01/2022 [facility] 07:50:30 1970964 Latex (substanc e) environme nt,medica tion itching Not available Not available 12/13/2022 20395 8007 SNOMED Chanel ward [facility], [facility] 3 15:05:40 Medications Name Sig Start Date Stop Date Status Note LastModified by Organization Details LastModified Time Mirena 21 mcg/24 hr (up to 8 years) 52 mg intrauterin e device Take by intrauter ine route. active Not Available Not Available No t Available acetaminoph en 325 mg tablet 08/19 completed Not Available Not Available Not Available nicotine 14 mg/24 hr daily transdermal patch APPLY 1 PATCH DAILY DIRECTED. 06/30 completed Not Available Not Available Not Available azithromyci n 250 mg tablet TAKE 2 TABLETS BY MOUTH TODAY, THEN TAKE 1 TABLET DAILY FOR 4 DAYS 06/30 completed Not Available Not Available Not Available ibuprofen 800 mg tablet TAKE 1 TABLET BY MOUTH EVERY 6 HOURS WITH FOOD 06/30 completed Not Available Not Available Not Available prednisone 20 mg tablet TAKE 1 TABLET BY MOUTH TWICE A DAY FOR 5 DAYS 12/13 completed Not Available Not Available Not Available clobetasol 0.05 % topical cream APPLY TOPICALLY TO THE AFFECTED AREA 2 TIMES A DAY FOR 14 DAYS. active Not Available Not Available No t Available metronidazo le 500 mg tablet TAKE 1 TABLET BY MOUTH EVERY 12 HOURS FOR 7 DAYS 09/03 completed Not Available Not Available Not Available sulfamethox azole 800 mg-trimetho prim 160 mg tablet TAKE 1 TABLET BY MOUTH TWICE A DAY 06/30 completed Not Available Not Available Not Available aspirin 81 mg tablet,trip yed release TAKE 1 TABLET ( 81 MG TOTAL) BY MOUTH DAILY 09/03 completed Not Available Not Available Not Available lamotrigine 25 mg tablet PLEASE SEE ATTACHED FOR DETAILED DIRECTION S 09/03 completed Not Available Not Available Not Available oxycodone-a cetaminophe n 5 mg-325 mg tablet TAKE 1 TO 2 TABLETS EVERY 4 TO 6 HOURS NEEDED FOR PAIN 06/30 completed Not Available Not Available Not Available famotidine 20 mg tablet TAKE 2 TABLETS (40 MG TOTAL) BY MOUTH 2 TIMES A DAY 09/03 completed Not Available Not Available Not Available benzonatate 100 mg capsule TAKE 1 CAPSULE BY MOUTH THREE TIMES A DAY NEEDED 06/30 completed Not Available Not Available Not Available cephalexin 500 mg capsule TAKE 1 CAPSULE BY MOUTH TWICE A DAY 06/30 completed Not Available Not Available Not Available erythromyci n 5 mg/gram (0.5 %) eye ointment APPLY A THIN RIBBON TO AFFECTED EYE(S) 4 TIMES A DAY 06/30 completed Not Available Not Available Not Available ferrous sulfate 325 mg (65 mg iron) tablet TAKE 1 TABLET (325 MG TOTAL) BY MOUTH EVERY DAY 09/03 completed Not Available Not Available Not Available prednisone 50 mg tablet TAKE 1 TABLET BY MOUTH EVERY DAY DIRECTED 06/30 completed Not Available Not Available Not Available omeprazole 20 mg capsule,del ayed release TAKE 1 CAPSULE BY MOUTH EVERY DAY 09/03 completed Not Available Not Available Not Available hydroxyzine HCl 25 mg tablet TAKE 1 TABLET BY MOUTH 3 TIMES A DAY NEEDED FOR ITCHING 09/03 completed Not Available Not Available Not Available mupirocin 2 % topical ointment APPLY DAILY TO SKIN TO AFFECTED AREA EVERY DAY 06/30 completed Not Available Not Available Not Available ibuprofen 600 mg tablet 08/19 completed Not Available Not Available Not Available methylpredn isolone 4 mg tablets in a dose pack TAKE 6 TABLETS ON DAY 1 DIRECTED ON PACKAGE AND DECREASE BY 1 TAB EACH DAY FOR A TOTAL OF 6 DAYS 06/30 completed Not Available Not Available Not Available albuterol sulfate HFA 90 mcg/actuati on aerosol inhaler INHALE 2 PUFFS EVERY 4 TO 6 HOURS NEEDED FOR SHORTNESS OF BREATH OR FOR WHEEZE FOR 7 DAYS active Not Available Not Available No t Available lamotrigine 100 mg tablet TAKE 1 TABLET BY MOUTH EVERY DAY 09/03 completed Not Available Not Available Not Available loratadine 10 mg tablet TAKE 1 TABLET BY MOUTH EVERY DAY 06/30 completed Not Available Not Available Not Available amoxicillin 875 mg-potassiu m clavulanate 125 mg tablet TAKE 1 TABLET EVERY 12 HOURS DAILY 06/30 completed Not Available Not Available Not Available chlorhexidi ne gluconate 0.12 % mouthwash RINSE MOUTH WITH 15ML (1 CAPFUL) FOR 30 SECONDS IN MORNING AND EVENING AFTER BRUSHING, THEN SPIT 06/30 completed Not Available Not Available Not Available Vitamin D3 12/13 completed Not Available Not Available Not Available 09/03 completed Not Available Not Available Not Available Vitamin 08/19 completed Not Available Not Available Not Available cholecalcif rodolfo (vitamin D3) 50 mcg (2,000 unit) capsule TAKE 1 CAPSULE BY MOUTH ONCE DAILY 07/19 completed Not Available Not Available Not Available Vitals Date Recorded Body height Body mass index (BMI) Body weight Systolic And Diastolic Provider Name and Address Organization Details Last Updated DateTime 09/06/2024 162.56 cm 35 kg/m2 18428.84 g 124/78 mm[Hg] Lidia Motley [facility] 09/06/2024 14:19:28 Date Recorded Body weight Systolic And Diastolic Provider Name and Address Organization Details Last Updated DateTime 01/12/2023 50859.83559 g 106/72 mm[Hg] Not Available [facility] Record 01/12/2023 11:32:36 Date Recorded Body weight Systolic And Diastolic Provider Name and Address Organization Details Last Updated DateTime 03/08/2023 47121.33297 g 118/60 mm[Hg] Not Available [facility] Record 03/08/2023 14:01:21 Date Recorded Body height Provider Name an d Address Organization Details Last Updated DateTime 04/05/2023 162.56 cm Loida Antonio [facility] 04/05/2023 12:51:21 Date Recorded Systolic And Diastolic Provider Name and Address Organization Details Last Updated DateTime 04/05/2023 102/66 mm[Hg] Not Available [facility] Record 04/05/2023 13:11:28 Date Recorded Body height Body mass index (BMI) Provider Name and Address Organization Details Last Updated DateTime 04/14/2023 162.56 cm 30 kg/m2 Lidia Motley [facility] 04/14/2023 11:20:52 Date Recorded Body weight Systolic And Diastolic Provider Name and Address Organization Details Last Updated DateTime 04/14/2023 29348.84279 g 118/62 mm[Hg] Not Available [facility] 04/14/2023 11:22:46 Social History Question Answer Notes LastModified by Organizat ion Details LastModified Time Tobacco Smoking Status Former Smoker was vaping prior to [place] hernández [facility] 04/14/2023 11:20:12 Is Blood Transfusion Acceptable In An Emergency? Yes Information not available 04/14/2023 In The 14 Days Before Symptom Onset, Have You Had Close Contact With A Laboratory-confi rmed COVID-19 While That Case Was Ill? No Information not available 04/14/2023 In The 14 Days Before Symptom Onset, Have You Had Close Contact With A Person Who Is Under Investigation For COVID-19 While That Person Was Ill? No Information not available 04/14/2023 Have You Been To An Area Known To Be High Risk For COVID-19? No Information not available 04/14/2023 Do You Reside In Or Have You Traveled To An Area Where Ebola Virus Transmission Is Active? No Information not available 04/14/2023 What Is The Highest Grade Or Level Of School You Have Completed Or The Highest Degree You Have Received? [id number] Information not available 04/14/2023 Have There Been Any Changes To Your Family Or Social Situation? No Information not available 04/14/2023 Have You Recently Or Are You Planning To Travel To An Area With Zika Virus? No Information not available 04/14/2023 Do You Have Any Children? Yes Information not available 09/06/2024 Does Your Partner Physically Hurt You Or Threaten To Hurt You? No Information not available 06/30/2022 Has Your Partner Forced You To Have Sex Or Perform Sex Acts When You Did Not Want To? No Information not available 06/30/2022 Does Your Partner Insult, Scream At Or Talk Down To You? No Information not available 06/30/2022 Does Your Partner Control You Or Any Part Of Your Life? No Information not available 06/30/2022 Are You Afraid Of Your Partner? No Information not available 06/30/2022 Tobacco Type Electronic Cigarettes/Va pe [email or web address] Information not available 12/13/2022 Drug Use? No Information no t available 06/30/2022 Do You Feel Safe At Home? Yes Information not available 06/30/2022 How Many Children Do You Have? 2 Information not available 09/06/2024 Do You Use Protection During Sex? No Information not available 04/14/2023 Are You Sexually Active? Yes Information not available 04/14/2023 Have You Recently Traveled Abroad? No Information not available 06/30/2022 Sex: Female Functional Status Question Answer Note LastModified by Organizat ion Details LastModified Time What is your level of alcohol consumption? None Information not available 04/14/2023 Are you currently employed? 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 Occasional Work related, Hiking, Walking Information not available 04/14/2023 Mental Status Question Answer Note LastModified by Organizat ion Details LastModified Time Do you feel stressed (tense, restless, nervous, or anxious, or unable to sleep at night)? [id number] Information not available 04/14/2023 Do you have difficulty concentrating, remembering or making decisions? No Information no t available 04/14/2023 Family History Relationship Description Onset Age of this Age Resolved Age Notes LastModified by Organization Details LastModified Time Mother Diabetes mellitus Not available 2022 19:07:29 Father Asthma [email or web address] Not available 12/13/2022 15:09:05 Sister Sister 2017 Car Accide nt [email or web address] Not available 09/06/2024 14:07:27 Notes:Denies family hx of GY N CA's Siblings; Healthy Partner; FOB(Will Wilson) Healthy IBS, Gastroenteritis; Mother Cerebral Palsy & Father Kidney Stones, DM, HTN, Mental Disorder; Siblings; 1 Sister PCOS Medical History Condition Response Other N *No Diseases or Conditions N Breast Cancer N Blood clots N Colon cancer N Benign breast disease N Lung Disease N Depression Y Defects or Inherited Disease N Anesthesia Complications N BrCa gene tested? N Headaches/Migraines Y Have you ever been on isolation N Anxiety Disorder Y HSV N Arthritis N Infertility N Interstitial Cystitis N Abnormal pap N Acid Reflux (GERD) Y Cancer N Stroke N Endometriosis N Fibromyalgia N Spina Bifida N HIV N Heart Problems N Sexual Dysfunction N Autoimmune disorder N Thyroid Problems N Kidney or Bladder Problems N GI Problems N Eating Disorder N Anemia Y Multiple Sclerosis N Psychiatric Illness N Ovarian Cancer N Diabetes N Blood Transfusions N Bladder disease N History of MRSA N Abnormal Uterine Bleeding N Hyperlipidemia N BrCa positive N Diverticulitis N Abuse/Domestic Violence N Asthma Y Hepatitis N Hypertension N Osteoporosis N Thrombophilias N Gynecological History Statement/Question Response Benign Breast Disease N Flow Moderate Date of LMP Breast Biopsy N IPV Screen Done 09/06/2024 [facility] Biopsy N Post Menopausal Bleeding N STIs/STDs N PID N Cervical Cancer N History of Endometrial Biopsy? N BrCa gene tested? N Ovarian Cancer N Breast Cancer N Bladder Problems N Abnormal Uterine Bleeding N Abnormal Pap N BrCa Positive N Infertility N Breast Ultrasound N Leep N HPV Vaccine Y Duration of Flow (days) 6 Endometriosis N Age at Menarche 18 Current Control Method IUD Age at First Child 23 Fibroids N Uterine Cancer N Current Control Method IUD-Mirena Frequency of Cycle (Q days) 28 Mammogram Required? N Sexually Active? Y Sexual Problems? N Date of Last Pap Smear 12/22/2022 Pap Required? N Hormone Replacement Therapy N Obstetrics History GPAL:G 3 P 2 0 1 2 Type Value Multiple Births 0 Full Term 2 Induced 0 Spontaneous 1 Premature 0 Living 2 Ectopics 0 Total 3 Immunizations Vaccine Type Date Status Note Provider Nam e and Address Organization Details Recorded Time meningococcal B, recombinant 7 completed Hwir Paco null, [facility] 04/05/2023 12:51:53 Influenza, adjuvanted, quadrivalent, PF 2 completed Hwir Paco null, [facility] 04/05/2023 12:51:35 COVID-19, mRNA, LNP-S, PF, 30 mcg/0.3 mL dose 1 completed Hwir Paco null, [facility] 04/05/2023 12:51:53 COVID-19, mRNA, LNP-S, PF, 30 mcg/0.3 mL dose 1 completed Hwir Paco null, [facility] 04/05/2023 12:51:35 COVID-19, mRNA, LNP-S, PF, 30 mcg/0.3 mL dose, xochitl-sucrose 2 completed Hwir Paco null, [facility] 04/05/2023 12:51:53 COVID-19, mRNA, LNP-S, bivalent, PF, 30 mcg/0.3 mL dose 2 completed Hwir Paco null, [facility] 04/05/2023 12:51:53 Influenza, split virus, trivalent, preservative 7 completed Hwir Paco null, [facility] 04/05/2023 12:51:53 Hep A, adult 6 completed Hwir Paco null, [facility] 04/05/2023 12:51:53 meningococcal MCV4P 7 completed Hwir Paco null, [facility] 04/05/2023 12:51:53 Influenza, split virus, quadrivalent, PF 8 completed Hwir Paco null, [facility] 04/05/2023 12:51:53 Influenza, MDCK, quadrivalent, PF 3 completed Boris Howard MD [address] [place] [address], [place], [address], [facility] 03/08/2023 14:16:47 COVID-19, mRNA, LNP-S, PF, 30 mcg/0.3 mL dose 1 completed Hwir Paco null, [facility] 04/05/2023 12:51:53 COVID-19, mRNA, LNP-S, bivalent, PF, 10 mcg/0.2 mL dose 2 completed Hwir Paco null, [facility] 04/05/2023 12:51:53 influenza, unspecified formulation 2 completed Hwir Paco null, [facility] 04/05/2023 12:51:53 Past Encounters Encounter ID Performer Location Encounter Start Date Encounter Closed Date Diagnosis/Indication Diagnosis SNOMED-CT Code Diagnosis ICD10 Code Diagnosis IMO Codes Diagnosis Note [id number] Boris Howard MD [facility] [address] [place] [address] 07/01/2022 08:25:14 07/01/2022 08:55:52 Screening for malignant neoplasm of cervix 672577974 Z12.4 Venereal d isease screening 170058918 Z11.3 screening 2437 68887 Z36.9 [id number] [facility] [address] [facility] [address] [place] [address] 07/20/2022 13:56:48 07/20/2022 16:19:42 Missed miscarriage [id number] O02.1 - pt meets the criteria for a non viable based on - CRL >= 7mm and no FHR - MSD >= 25mm and no embryo - Absence of embryo w/ +FHR after >= 2wks of initial US showing GS and no YS - Absence of embryo w/ +FHR after >= 11 days of initial US showing GS and YS - reviewed that miscarriag es are more common than most people think (between 06/15 to 06/10) - typically, not related to anything done by pt (eg physical activity, sex, stress, eating) - usually no identifiab le etiology, but most common cause is abnormal # of chromosome s - evaluation of recurrent miscarriag e reserved for 2 consecutiv e miscarriag es - discussed options including expectant, med ab vs D&C - discusses pros and cons of each method including considered more n atural and private w/ expectant management and medication ; also benefit of having scheduled/ fast procedure w/ option of stronger anesthesia in OR - reviewed rba of each option including failure, need for repeat dosage or procedure, bleeding, infection, retained POC, uterine perforatio n and damage to surroundin g structures - after discussion pt elects for suction D&C - scheduled for 07/20- s/p rhogam [id number] Boris Howard MD [facility] [address] [place] [address] 08/19/2022 09:16:56 08/19/2022 09:37:39 Missed miscarriage [id number] O02.1 - no s/p D&C- no furthe rbleeding since - discussed risk of miscarriag e in future but more likely nml - - declines control, would be ok if she got pregnajt- rec starting PNV w/ folate and avoid t/a/d other teratogens when attempting to concieve - discused earlier US and hcg if pt desries in fuutre- briefly reviewed info on efficacy of progestero ne for miscarriag e prevention Uses oral contraception [id number] Z30.41 - reviewed control optons- vapes and hx of chronic migraiens w/ auras- ndiscussed because of this she can not take anythign w/ estrogen [id number] Boris Howard MD [address] [address] 12/21/2022 15:57:55 12/21/2022 21:23:12 Venereal disease screening 774931284 Z11.3 Screening for malignant neoplasm of cervix 931885677 Z12.4 Routine an tenatal care 533223702 Z34.01 Gestation period, 10 weeks 95383072 Z3A.10 [id number] Boris Howard MD [address] [address] 01/12/2023 11:06:19 01/12/2023 11:54:55 screening 309547402 Z36.9 Routine an tenatal care 442561381 Z34.01 Gestation period, 13 weeks 10724208 Z3A.13 [id number] Boris Howard MD [address] [address] 03/08/2023 13:27:36 03/08/2023 14:17:16 screening 106121864 Z36.9 Administra tion of influenza vaccine 63000233 Z23 Routine an tenatal care 883132088 Z34.02 Gestation period, 21 weeks 20714107 Z3A.21 [id number] Boris Howard MD [address] [address] 04/05/2023 12:16:45 04/05/2023 13:16:55 Routine care 739079000 Z34.82 Z36.89 Z67.91 Venereal d isease screening 068133437 Z11.3 Gestation period, 25 weeks 68599769 Z3A.25 [id number] Boris Howard MD [facility] [address] [place] [address] 04/14/2023 11:03:51 04/14/2023 11:27:34 Routine care 540519497 Z34.02 Gestation period, 26 weeks 71167350 Z3A.26 [id number] Boris Howard MD [facility] [address] [place] [address] 09/06/2024 14:07:14 09/06/2024 14:31:49 Infection screening 747332183 Z11.3 [id number] Gynecologi c examination 17882719 Z01.483 [id number] - pap: uptodate- control: mirena IUD- rec yearly PCP visits for health maintenanc e / vaccines Health Concerns Section Related Observation LastModified by Organization Detai ls LastModified Time None Recorded Concern Status LastModified by Organization Details LastModified Time None Recorded Advance Directives Directive None Recorded Payers Insurance Date Sequence Insurance Name Policy Number Policy To Covered Member ID To Member ID Guarantor Name 09/06/2024 1 [facility] Womai PLANS [facility] - [place] [employer] (HMO) [id number] Korin L Caprice [id number] Korin Caprice 09/03/2024 1 [facility] (MEDICAID REPLACEMENT - HMO) [facility] Korin Caprice [id number] Korin Caprice 09/06/2024 2 [place] [facility] Korin L Caprice [id number] Korin Caprice Notes Date Note Type Note Provider Name and Address Organization Details Recorded Time 09/06/2024 text/html - pt here for annual exam - irregilar periods w/ IUD- denies any complaints w/ intercourse, Boris Howard MD [address] [place] [address], [address] Floor, [place], [address], [place] [facility] 09/06/2024 14:26:36 OBGyn Episode Ob Episode Information Episode Created Date Number of Fetuses Patient Bloodtype Patient rh Status Prepregnancy Weight lbs Domestic Partner Domestic Partner Phone Father Name Divisional Merchandising Manager Status 09/07/19 25 1 CLOSED Fetus Data First Name Last Name Admitted to NICU Weight (g) Sex Living Outcome Pediatric Complications Fetus ID Race Codes Race Delivery Type F Full Term [id number] Vaginal Delivery Ghanshyam Calculation Initial Ghanshyam Date Initial Exam Date Initial Exam Provider Initial Ultrasound Date Last Menstrual Period Date Ultra Sound Weeks Gestation 0 Eighteen To Twenty Week Ghanshyam Update Ultra Sound Date Fundal Height At Umbil Quickening Date Ultra Sound Latest Weeks Gestation Final Ghanshyam Confirmed By Final Ghanshyam Confirmed Date Final Ghanshyam Date Ultra Sound Latest Days Gestation 0 0 Menstrual History Last Menstrual Date Menses Monthly On Bcp Conception Prior Menses Frequency Hcg Plus Date Menarche Onset Age Delivery Information Delivery Date Delivery Type Labor Anesthesia Weeks Gestation Incision Type Labor Labor Length Hrs Delivered By Post Complications Tubal Sterilization Discharge Date Comments 4 Discharge Information Feeding Method Contraceptive Method Maternal HG B and HCT Levels Ob Episode Information Episode Created Date Number of Fetuses Patient Bloodtype Patient rh Status Prepregnancy Weight lbs Domestic Partner Domestic Partner Phone Father Name Divisional Merchandising Manager Status 06/30/19 23 1 A Negative 142 Will Moe Will Moe CLOSED Fetus Data First Name Last Name Admitted to NICU Weight (g) Sex Living Outcome Pediatric Complications Fetus ID Race Codes Race Delivery Type [id number] Problems Problem Notes Problem Name Start Date End Date Resolution Snomed Code Not e Varicella non-immune [id number] - reviewed precautions and need for vacined High risk [id number] Ghanshyam Calculation Initial Ghanshyam Date Initial Exam Date Initial Exam Provider Initial Ultrasound Date Last Menstrual Period Date Ultra Sound Weeks Gestation 02/10/2023 06/30/2022 06/30/2022 05/06/2022 8 Eighteen To Twenty Week Ghanshyam Update Ultra Sound Date Fundal Height At Umbil Quickening Date Ultra Sound Latest Weeks Gestation Final Ghanshyam Confirmed By Final Ghanshyam Confirmed Date Final Ghanshyam Date Ultra Sound Latest Days Gestation 0 API-217 06/30/2022 02/11/20 23 0 Pre- Flowsheet Flowsheet Date 06/30/2022 Mccallum Score Blood Edema Fundus Height Fundus Units Glucose Ketones Leukocytes Nitrite Labor Signs Protein Cervic Dilation Cervic Effacement Cervic Station Type Weight in lbs Pre/Post Dialysis Refused BP Diastolic BP Location Tested BP Systolic BP Type Fetus Heart Rate Present Fetus Movement Comments phone intake/received flu va c and Covid vaccine/desires genetic testing ERA/SMA/CF/AT Flowsheet Date 07/01/2022 Mccallum Score Blood Edema Fundus Height Fundus Units Glucose Ketones Leukocytes Nitrite Labor Signs Protein Cervic Dilation Cervic Effacement Cervic Station Type Weight in lbs Pre/Post Dialysis Refused Weight 146.215035059629 BP Diastolic BP Location Tested BP Systolic BP Type 64 108 Fetus Heart Rate Present Fetus Movement Comments OB Hx:G1: currentGYN hxAbnor mal PAP's or cervical procedures: had pap smear 1 month ago and that was normal at [facility]'s: deniesPMH: asthma (childhood hospitlization but no intubation), eczema is PSH: deniesMeds: PNV, pro air, vit DALL: NKDAFH: Denies hx of mental retardation, genetic conditions, coagulopathiesSOCIAL HISTORY: former vaper but stopped when . denies T/A/D. 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 Discussed options including cell-free DNA, amnio and [facility]. Pt elects ERA/SMA/CF- revieted toxo precautions Flowsheet Date 07/20/2022 Mccallum Score Blood Edema Fundus Height Fundus Units Glucose Ketones Leukocytes Nitrite Labor Signs Protein Cervic Dilation Cervic Effacement Cervic Station Type Weight in lbs Pre/Post Dialysis Refused 0.0 Not Performed BP Diastolic BP Location Tested BP Systolic BP Type 90 130 sitting Fetus Heart Rate Present Fetus Movement Comments Menstrual History Last Menstrual Date Menses Monthly On Bcp Conception Prior Menses Frequency Hcg Plus Date Menarche Onset Age 895/06/2022 Plans and Education First Trimester Discussed Date Discussion Item Discussion Note Discuss ed By 06/30/2022 Anticipated course of care 06/30/2022 Alcohol 06/30/2022 Intimate partner violence feels safe at [facility]2 06/30/2022 Environmental/work hazards a texidor2 06/30/2022 Screening for aneuploidy ate x[facility]2 06/30/2022 Nutrition counseling ; special diet; dietary precautions (mercury, listeriosis) 06/30/2022 Childbirth classes/hospital facilities 06/30/2022 HIV and other routine tests 06/30/2022 Risk factors identif ied by history 06/30/2022 Weight gain counseling atexi dor2 06/30/2022 Exercise 06/30/2022 Teratogens 06/30/2022 Use of any medicatio ns (including supplements, vitamins, herbs, or OTC drugs) 06/30/2022 desires 06/30/2022 Sexual activity 06/30/2022 Tobacco/smoking cess ation counseling (ask, advise, assess, assist, and arrange) 06/30/2022 Illicit/recreational drugs a tex[facility]2 06/30/2022 Dental care 06/30/2022 Travel none 06/30/2022 Seat belt use always 06/30/2022 Indications for ultrasonography 06/30/2022 Avoidance of saunas or hot tubs 06/30/2022 Toxoplasmosis precautions (cats/raw meat) 2 cats Second Trimester Discussed Date Discussion Item Discussion Note Discuss ed By Third Trimester Discussed Date Discussion Item Discussion Note Discuss ed By Delivery Information Delivery Date Delivery Type Labor Anesthesia Weeks Gestation Incision Type Labor Labor Length Hrs Delivered By Post Complications Tubal Sterilization Discharge Date Comments Discharge Information Feeding Method Contraceptive Method Maternal HG B and HCT Levels Ob Episode Information Episode Created Date Number of Fetuses Patient Bloodtype Patient rh Status Prepregnancy Weight lbs Domestic Partner Domestic Partner Phone Father Name Divisional Merchandising Manager Status 12/02/19 23 1 A Negative 145 Will Steve Will Steve CLOSED Fetus Data First Name Last Name Admitted to NICU Weight (g) Sex Living Outcome Pediatric Complications Fetus ID Race Codes Race Delivery Type [id number] Problems Problem Notes - 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 health referral palced Appointment status SELFRESOLVED [id number] 5 Pt lives in [place]. Prefers [facility] office for appts. RhD negative SELFRESOLVED [id number] Varicella non-immune 12/13/2022 [id number] 9 - had vaccine as a child- reviewed precuaitons, plan for booster Ghanshyam Calculation Initial Ghanshyam Date Initial Exam Date Initial Exam Provider Initial Ultrasound Date Last Menstrual Period Date Ultra Sound Weeks Gestation 07/11/2023 12/01/2022 11/30/2022 10/04/2022 7 Eighteen To Twenty Week Ghanshyam Update Ultra Sound Date Fundal Height At Umbil Quickening Date Ultra Sound Latest Weeks Gestation Final Ghanshyam Confirmed By Final Ghanshyam Confirmed Date Final Ghanshyam Date Ultra Sound Latest Days Gestation 0 07/18/19 24 0 Pre- Flowsheet Flowsheet Date 12/01/2022 Mccallum Score Blood Edema Fundus Height Fundus Units Glucose Ketones Leukocytes Nitrite Labor Signs Protein Cervic Dilation Cervic Effacement Cervic Station Type Weight in lbs Pre/Post Dialysis Refused BP Diastolic BP Location Tested BP Systolic BP Type Fetus Heart Rate Present Fetus Movement Comments Call to pt regarding EPDS Po sitive 11. Ques 10 Never. Pt reports she has been feeling irritated and on edge since and wanted to be honest on the EPDS questions. Pt desires Referral to [facility]. (See pt case). JR Flowsheet Date 12/13/2022 Mccallum Score Blood Edema Fundus Height Fundus Units Glucose Ketones Leukocytes Nitrite Labor Signs Protein Cervic Dilation Cervic Effacement Cervic Station Type Weight in lbs Pre/Post Dialysis Refused BP Diastolic BP Location Tested BP Systolic BP Type Fetus Heart Rate Present Fetus Movement Comments Phone Intake. Neg L ow Dose ASA. EPDS Positive 11. Ques 10 Never. Pt unaware of [facility] unsuccessful contact attempts. Pt desires case to reopen (see pt case). Pt desires ERA/SMA/CF/HGB Electrophoresis. JR Flowsheet Date 12/21/2022 Mccallum Score Blood Edema Fundus Height Fundus Units Glucose Ketones Leukocytes Nitrite Labor Signs Protein Cervic Dilation Cervic Effacement Cervic Station Type Weight in lbs Pre/Post Dialysis Refused Weight 148.126929931954 BP Diastolic BP Location Tested BP Systolic BP Type 66 108 Fetus Heart Rate Present A 166 Fetus Movement Comments GHANSHYAM: ghanshyam 07/18/23 by 7w1d US not c/w LMPOB Hx:G1: D&C for MABG2: currentGYN hxAbnormal PAP's or cervical procedures: STI's: deniesPMH: biopolar, asthma (no hospitiization)PSH: D&C, WT, tonisilsMeds: PNV, albuterolr PRNALL: latex (itching)FH: Denies hx of mental retardation, genetic conditions, coagulopathiesSOCIAL HISTORY: denies T/A/D. 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 Discussed options including cell-free DNA, amnio and CVS. Pt elects ERA/SMA/CF/HGB Electrophoresis- reviewed varicella precautions w/ pt Flowsheet Date 01/12/2023 Mccallum Score Blood Edema Fundus Height Fundus Units Glucose Ketones Leukocytes Nitrite Labor Signs Protein Cervic Dilation Cervic Effacement Cervic Station Type Weight in lbs Pre/Post Dialysis Refused Weight 149.244813488195 BP Diastolic BP Location Tested BP Systolic BP Type 72 106 Fetus Heart Rate Present A 155 Fetus Movement Comments -ERA #1, sma, cf, hgb electo pheresis reviewed limitations of screening test- happy w/ teleheath therapist Flowsheet Date 03/08/2023 Mccallum Score Blood Edema Fundus Height Fundus Units Glucose Ketones Leukocytes Nitrite Labor Signs Protein Cervic Dilation Cervic Effacement Cervic Station none neg Type Weight in lbs Pre/Post Dialysis Refused Weight 165.008479439956 BP Diastolic BP Location Tested BP Systolic BP Type 60 118 Fetus Heart Rate Present A 147 Fetus Movement A Yes Comments Patient did not have ERA#2 d rawn, will send today (lab's latest is 03/23/23). Missed , will schedule in [place]. Flu shot today.reviewe dlimitations of screening testingmissed apt because father in law was sick and had to go to [facility] weight malik and exercise Flowsheet Date 04/05/2023 Mccallum Score Blood Edema Fundus Height Fundus Units Glucose Ketones Leukocytes Nitrite Labor Signs Protein Cervic Dilation Cervic Effacement Cervic Station Type Weight in lbs Pre/Post Dialysis Refused With clothes 0.0 BP Diastolic BP Location Tested BP Systolic BP Type 66 102 Fetus Heart Rate Present A 146 Fetus Movement A Yes Comments Glucola + L&D info/Tdap VIS [id number] 1#sotero 26% AC 7.2%, EFW 4.6% by whowill order MFM us to eval for possible IUGR and order weekly dopplers x2 in interimrevieed dec FM precautions Flowsheet Date 04/14/2023 Mccallum Score Blood Edema Fundus Height Fundus Units Glucose Ketones Leukocytes Nitrite Labor Signs Protein Cervic Dilation Cervic Effacement Cervic Station none neg Type Weight in lbs Pre/Post Dialysis Refused Weight 175.328542590517 BP Diastolic BP Location Tested BP Systolic BP Type 62 118 Fetus Heart Rate Present A 143 Fetus Movement A Yes Comments Nml dopplers Menstrual History Last Menstrual Date Menses Monthly On Bcp Conception Prior Menses Frequency Hcg Plus Date Menarche Onset Age 0510/04/2022 Plans and Education First Trimester Discussed Date Discussion Item Discussion Note Discuss ed By 12/13/2022 Anticipated course o f care byuyrhgoaie251 12/13/2022 Alcohol alumhercrrf343 12/13/2022 Intimate partner violence Denies feels safe (IPV Questions Confirmed) oiyqesrymen102 12/13/2022 Environmental/work hazards russell judgevcxgiuurut393 12/13/2022 Screening for aneuploidy lawrence asencioaamqxtra030 12/13/2022 Nutrition counseling ; special diet; dietary precautions (mercury, listeriosis) [email or web address] 12/13/2022 Childbirth classes/h ospital facilities [facility] vniuaxhgenu922 12/13/2022 HIV and other routin e tests Ordered aoesomkvgid019 12/13/2022 Risk factors identif ied by history jtoqyrvvtyx364 12/13/2022 Weight gain counseling jrich nhzuey623 12/13/2022 Exercise [email or web address] 12/13/2022 Teratogens vaunofdrutm715 12/13/2022 Use of any medicatio ns (including supplements, vitamins, herbs, or OTC drugs) itqoezstlwa408 12/13/2022 Plans to Breastfeed jrmagdaleno sppj438 12/13/2022 Sexual activity jrichardson1 29 12/13/2022 Tobacco/smoking cess ation counseling (ask, advise, assess, assist, and arrange) jovlnxrkorn125 12/13/2022 Illicit/recreational drugs russell judgetuiibuwyxj722 12/13/2022 Dental care ubjidtbcule253 12/13/2022 Travel None tournmkxqxx922 12/13/2022 Seat belt use Always pyhifzxhnls027 12/13/2022 Indications for ultrasonography [email or web address] 12/13/2022 Avoidance of saunas or hot tubs zheuvqsbwpq401 12/13/2022 Toxoplasmosis precau tions (cats/raw meat) None [id number] Second Trimester Discussed Date Discussion Item Discussion Note Discuss ed By Third Trimester Discussed Date Discussion Item Discussion Note Discuss ed By Delivery Information Delivery Date Delivery Type Labor Anesthesia Weeks Gestation Incision Type Labor Labor Length Hrs Delivered By Post Complications Tubal Sterilization Discharge Date Comments Discharge Information Feeding Method Contraceptive Method Maternal HG B and HCT Levels
--- OUTSIDE RECORDS SUMMARY | 2025-03-07 17:09 | XMS_ITS ---
Author Name [facility] Organization Unknown History of Medication Use Medication Directions Dispensed Refills Start Date End Date Stat aspirin 81 mg tablet,delayed release TAKE 1 TABLET ( 81 MG TOTAL) BY MOUTH DAILY 5 completed famotidine 20 mg tablet TAKE 2 TABLETS (40 MG TOTAL) BY MOUTH 2 TIMES A DAY 5 completed ferrous sulfate 325 mg (65 mg iron) tablet TAKE 1 TABLET (325 MG TOTAL) BY MOUTH EVERY DAY 5 completed hydroxyzine HCl 25 mg tablet TAKE 1 TABLET BY MOUTH 3 TIMES A DAY NEEDED FOR ITCHING 5 completed lamotrigine 100 mg tablet TAKE 1 TABLET BY MOUTH EVERY DAY 5 completed lamotrigine 25 mg tablet PLEASE SEE ATTACHED FOR DETAILED DIRECTIONS 5 completed metronidazole 500 mg tablet TAKE 1 TABLET BY MOUTH EVERY 12 HOURS FOR 7 DAYS 5 completed omeprazole 20 mg capsule,delayed release TAKE 1 CAPSULE BY MOUTH EVERY DAY 5 completed 5 completed prednisone 20 mg tablet TAKE 1 TABLET BY MOUTH TWICE A DAY FOR 5 DAYS 3 completed acetaminophen 325 mg tablet 3 completed ibuprofen 600 mg tablet 3 completed cholecalciferol (vitamin D3) 50 mcg (2,000 unit) capsule TAKE 1 CAPSULE BY MOUTH ONCE DAILY 3 completed amoxicillin 875 mg-potassium clavulanate 125 mg tablet TAKE 1 TABLET EVERY 12 HOURS DAILY 3 completed azithromycin 250 mg tablet TAKE 2 TABLETS BY MOUTH TODAY, THEN TAKE 1 TABLET DAILY FOR 4 DAYS 3 completed benzonatate 100 mg capsule TAKE 1 CAPSULE BY MOUTH THREE TIMES A DAY NEEDED 3 completed cephalexin 500 mg capsule TAKE 1 CAPSULE BY MOUTH TWICE A DAY 3 completed chlorhexidine gluconate 0.12 % mouthwash RINSE MOUTH WITH 15ML (1 CAPFUL) FOR 30 SECONDS IN MORNING AND EVENING AFTER BRUSHING, THEN SPIT 3 completed erythromycin 5 mg/gram (0.5 %) eye ointment APPLY A THIN RIBBON TO AFFECTED EYE(S) 4 TIMES A DAY 3 completed ibuprofen 800 mg tablet TAKE 1 TABLET BY MOUTH EVERY 6 HOURS WITH FOOD 3 completed loratadine 10 mg tablet TAKE 1 TABLET BY MOUTH EVERY DAY 3 completed mupirocin 2 % topical ointment APPLY DAILY TO SKIN TO AFFECTED AREA EVERY DAY 3 completed nicotine 14 mg/24 hr daily transdermal patch APPLY 1 PATCH DAILY DIRECTED. 3 completed oxycodone-acetaminoph en 5 mg-325 mg tablet TAKE 1 TO 2 TABLETS EVERY 4 TO 6 HOURS NEEDED FOR PAIN 3 completed prednisone 50 mg tablet TAKE 1 TABLET BY MOUTH EVERY DAY DIRECTED 3 completed sulfamethoxazole 800 mg-trimethoprim 160 mg tablet TAKE 1 TABLET BY MOUTH TWICE A DAY 3 completed albuterol sulfate HFA 90 mcg/actuation aerosol inhaler INHALE 2 PUFFS EVERY 4 TO 6 HOURS NEEDED FOR SHORTNESS OF BREATH OR FOR WHEEZE FOR 7 DAYS active clobetasol 0.05 % topical cream APPLY TOPICALLY TO THE AFFECTED AREA 2 TIMES A DAY FOR 14 DAYS. active Mirena 21 mcg/24 hr (up to 8 years) 52 mg intrauterine device Take by intrauterine route. active Allergies Allergen Reaction Severity Comment Documented Date Source Statu s CAT DANDER ITCHING severe [facility] LATEX (SUBSTANCE) ITCHING [facility] active Problems Problem Status Onset Date Problem Type Date of Resoluti on Source Migraine active 2022-12-13 [facility] Eczema active 2022-12-13 ProblemAct [facility] Immunizations Vaccine Date Source Lot Number Status Influenza, MDCK, quadrivalent, PF 03/08/2023 [facility] [id number] completed influenza, unspecified formulation 05/06/2022 [facility] completed COVID-19, mRNA, LNP-S, bival ent, PF, 30 mcg/0.3 mL dose 03/18/2022 [facility] [id number] completed Influenza, adjuvanted, quadrivalent, PF 02/26/2022 [facility] [id number] completed COVID-19, mRNA, LNP-S, PF, 3 0 mcg/0.3 mL dose, xochitl-sucrose 09/07/2021 [facility] [id number] completed COVID-19, mRNA, LNP-S, bival ent, PF, 10 mcg/0.2 mL dose 06/06/2021 [facility] completed COVID-19, mRNA, LNP-S, PF, 30 mcg/0.3 mL dose 03/22/2021 [facility] [id number] completed COVID-19, mRNA, LNP-S, PF, 30 mcg/0.3 mL dose 02/28/2021 [facility] [id number] completed COVID-19, mRNA, LNP-S, PF, 30 mcg/0.3 mL dose 06/06/2020 [facility] completed Influenza, split virus, quadrivalent, PF 03/21/2018 [facility] [id number] completed Influenza, split virus, triv alent, preservative 02/14/2017 [facility] [id number] completed meningococcal B, recombinant 02/14/2017 [facility] [id number] completed meningococcal MCV4P 02/14/2017 [facility] [id number] compl eted Hep A, adult 02/05/2016 [facility] [id number] completed Encounters Encounter Type Encounter Reason Primary Diagnosis Location Date Ambulatory Bipolar II disorder Bipolar II disorder [facility], [facility] 09/06/2024 Ambulatory Encounter for suprvs n of normal , second trimester [facility], [facility] 04/14/2023 Ambulatory Encounter for suprvs n of normal , second trimester [facility], [facility] 04/14/2023 Ambulatory 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, unspecified, unsp [facility], [facility] 04/05/2023 Ambulatory 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, unspecified, unsp [facility], [facility] 04/05/2023 Ambulatory Encntr for suprvsn o f normal first preg, second trimester [facility], [facility] 03/09/2023 Ambulatory Bipolar II disorder [facility], [facility] 03/08/2023 Ambulatory Bipolar II disorder [facility], [facility] 01/12/2023 Ambulatory Bipolar II disorder [facility] 01/12/2023 Ambulatory [facility] 12/21/2022 Ambulatory [facility] 12/13/2022 Ambulatory [facility] 11/30/2022 Ambulatory [facility] 11[facility]18/2022 Ambulatory [facility] 08/19/2022 Ambulatory [facility] 07/22/2022 Ambulatory [facility] 07/20/2022 Ambulatory [facility] 07/20/2022 Ambulatory [facility] 07/01/2022 Ambulatory [facility] 06/30/2022 Ambulatory [facility], [facility] 06/30/2022 Care Team Organization Name Specialty Phone Email Start Date End Da te [facility], [facility] 07/01/2022 [facility], [facility] 06/30/2022 07/01/2022
[2025-03-07 17:23] VITALS: BP 122/76; PULSE 75; RESP 18; TEMP 37; O2SAT 98
== END 2025-03-07 17:23 | disposition home or self-care (01) ==
PROVIDERS: Emergency Provider Emergency Medicine; PCP Physician Assistant Medical
DX: H66.91 Otitis media, unspecified, right ear (principal); H92.01 Otalgia, right ear
CPT/HCPCS: 99282; 99283